=== PATIENT | male | born 1980 | race Asian ===

== ENCOUNTER 2020-06-17 13:18 | Emergency (ER) | payer OTHER, MEDICAID, SELFPAY ==
[2020-06-17 13:39] VITALS: BP 152/88; PULSE 82; RESP 18; TEMP 36.9; O2SAT 98; BMI 31.9
--- NOTE | 2020-06-17 13:47 | DI.RAD.S_ITS ---
PROCEDURE: XR ELBOW LT MIN 3V INDICATIONS: fall on snowboard TECHNIQUE: 3 views of the elbow were acquired. COMPARISON: [facility], CR, XR FOREARM LT 2V, 06/17/2020, 13:49. FINDINGS: Bones: There is a focal bone fragment seen adjacent to the coronoid process the proximal ulna. This fragment demonstrates apparent corticated margins, and this is felt most likely to be related to a remote injury. There is also a minimal lucency seen involving head. No suspicious lytic or blastic lesions are seen. Soft tissues: No elbow joint effusion. No suspicious soft tissue calcifications. IMPRESSION: Potential fractures are seen. However, there is no joint effusion, which argues against an acute fracture. If clinically appropriate, please consider a dedicated elbow CT for further evaluation. Dictated by: Yefri Villegas M.D. on 06/17/2020 at 13:04 Approved by: Yefri Villegas M.D. on 06/17/2020 at 13:08
--- NOTE | 2020-06-17 13:47 | DI.RAD.S_ITS ---
PROCEDURE: XR FOREARM RT 2V INDICATIONS: fall on snowboard TECHNIQUE: 2 views of the forearm were acquired. COMPARISON: [facility], CR, XR ELBOW LT MIN 3V, 06/17/2020, 13:49. FINDINGS: Bones: No acute fractures or dislocations. There is a remote appearing fracture fragment seen adjacent to the coronoid process of the olecranon. No suspicious bony lesions. Note is made of negative ulnar variance. This can predispose to development of AVN of the lunate. However, no findings of AVN of the lunate are seen on these plain films. Soft tissues: No suspicious soft tissue calcifications or masses. IMPRESSION: No definite, acute fracture can be seen. If there is point tenderness (or other clinical suspicion for a fracture not seen on these images) then a dedicated CT could be considered for further evaluation, if clinically appropriate. Dictated by: Yefri Villegas M.D. on 06/17/2020 at 13:08 Approved by: Yefri Villegas M.D. on 06/17/2020 at 13:09
--- NOTE | 2020-06-17 14:16 | ED_ITS ---
HPI - Extremity Injury (Upper) General Chief Complaint: Extremity Injury, Upper Stated Complaint: hurt left arm snowboarding Time Seen by Provider: 06/17/20 13:20 Source: patient Mode of arrival: Ambulatory Limitations: no limitations History of Present Illness HPI narrative: 39-year-old male nonsmoker with history of high blood pressure and gout presents with an injury to his left elbow suffered a few days ago while snowboarding. He crashed while riding in the half pipe and fell on arms that were reaching backwards to support his weight. He then tried skiing the following day and noticed that when trying to push with his pole he had significant pain in his elbow. He now admits to increasing pain with range of motion. He briefly had some tingling on his left thumb but denies any ongoing numbness, tingling or weakness. MD complaint: injury to: left Onset (ago): day(s) Other Extremity Injury: Left: elbow Other injuries: none Handedness: right Place: outdoors Severity: moderate Relieving factors: immobilization Exacerbating factors: movement of extremity Context: fall Associated symptoms: denies other symptoms Related Data Previous Rx's Medication Instructions Recorded losartan 50 mg PO QDAY #90 tab 04/28/17 colchicine 0 PO SEE INSTRUCTIONS #3 tab 08/25/17 Allergies Allergy/AdvReac Type Severity Reaction Status Date / Time No Known Drug Allergies Allergy Verified 06/17/20 13:45 Review of Systems Constitutional Constitutional: Denies chills, Denies fatigue, Denies fever(s), Denies frequent falls, Denies lethargy and Denies weakness Eyes Eyes: Denies change in vision, Denies eye discharge, Denies irritation and Denies loss of vision ENT Ears, Nose, Mouth, and Throat: Denies change in voice, Denies dizziness, Denies neck pain, Denies sore throat and Denies throat swelling Cardiovascular Cardiovascular: Denies chest pain, Denies irregular heart rhythm, Denies lightheadedness, Denies palpitations, Denies dyspnea, Denies dyspnea on exertion and Denies orthopnea Respiratory Respiratory: Denies cough, Denies dyspnea, Denies dyspnea on exertion and Denies wheezing Gastrointestinal Gastrointestinal: Denies abdominal pain, Denies change in bowel habits, Denies diarrhea, Denies nausea and Denies vomiting Musculoskeletal Musculoskeletal: Reports arthralgias, Reports joint swelling, Reports limited range of motion, Denies neck pain and Denies numbness Integumentary/Breasts Skin/Breast: Denies pruritus, Denies erythema, Denies rash and Denies wounds Neurologic Neurologic: Denies behavioral changes, Denies confusion, Denies dizziness, Denies frequent falls, Denies loss of vision, Denies numbness and Denies weakness Psychiatric Psychiatric: Denies anxiety, Denies behavioral changes, Denies confusion, Denies depression, Denies homicidal ideation and Denies suicidal ideation Endocrine Endocrine: Denies fatigue, Denies flushing and Denies palpitations Hematologic/Lymphatic Hematologic/Lymphatic: Denies easy bruising Allergic/Immunologic Allergic/Immunologic: Denies urticaria, Denies throat swelling and Denies wheezing Patient History Family History Father Age: 69 Diabetes mellitus Hypertension Mother Age: 64 Hypertension Social History Smoking Status: Never smoker Smoking Status: Never smoker alcohol intake frequency: 0-2 drinks per day Substance Use Type: does not use Exam Narrative Exam Narrative: GEN: AOx3 and in mild distress EYES: Pupils are equal, round, and reactive to light and accommodation. Extraoccular muscles are intact bilaterally. There is no subconjunctival hemorrhage or exudate. CHEST: Lungs are clear to auscultation bilaterally and free of wheezes, rales, or rhonchi. Heart rate is regular rhythm, there are no murmurs, clicks, rubs, or gallops. There is no chest wall tenderness. ABD: Abdomen is soft and nontender. There is no guarding or rebound. Bowel sounds are normal in all 4 quadrants. There is no mass or organomegaly. EXT: Decreased range of motion of left elbow secondary to pain, moderate effusion, bony tenderness throughout. Full pronation and supination, decreased flexion and extension at the elbow. No ongoing numbness, tingling or weakness SKIN: Warm, pink, and dry. No erythema or rash Initial Vital Signs Initial Vital Signs: Vital Signs Temperature 98.4 F 06/17/20 13:39 Pulse Rate 82 06/17/20 13:39 Respiratory Rate 18 06/17/20 13:39 Blood Pressure 152/88 H 06/17/20 13:39 Pulse Oximetry 98 06/17/20 13:39 Procedures Orthopedic Splinting/Casting Injury #1: Side: left Upper Extremity Injury Location: elbow Upper Extremity Immobilizer: sling/shoulder immobilizer Post splinting neuro exam: intact Post splinting vascular exam: intact Placed by: Nursing Course Course Course Narrative: reviewed CT with ortho. No posterior fat pad. Agrees with radiology, unlikely to be fracture. Orders Ordered: ED Orders 06/17/20 13:47 XR elbow LT min 3V Stat XR forearm LT 2V Stat 06/17/20 14:29 CT UE LT wo con Stat Vital Signs Vital signs: Vital Signs - 8 hr 06/17/20 13:39 06/17/20 16:37 Temperature 98.4 F Pulse Rate 82 74 Respiratory Rate 18 16 Blood Pressure 152/88 H 139/90 Pulse Oximetry 98 96 MDM - Extremity Injury (Upper) Imaging Data Extremity x-ray #1: Radiologist's Impression: 15 Ildefonso Walters, Find Patient Imaging - Gene Mederoszane Cleary 39 M 1980 ACTIVITY DATE EXAM STATUS AUTHOR 06/17/20 13:47 Signed Yefri Villegas 06/17/20 13:47 Signed BakariYefri [address] [id number] ReportSigned Patient: Derrick Mederos RMR#: [id number]: 1980Acct:[id number]/Sex: 39 / MDate of Service: 06/17/20Loc: EDAccession Number: [id number] Procedure: XR elbow LT min 3V Ordering Provider: Ildefonso Walters D.O. PROCEDURE: XR ELBOW LT MIN 3V INDICATIONS: fall on snowboard TECHNIQUE: 3 views of the elbow were acquired. COMPARISON: [facility], , XR FOREARM LT 2V, 06/17/2020, 13:49. FINDINGS: Bones: There is a focal bone fragment seen adjacent to the coronoid process the proximal ulna. This fragment demonstrates apparent corticated margins, and this is felt most likely to be related to a remote injury. There is also a minimal lucency seen involving head. No suspicious lytic or blastic lesions are seen. Soft tissues: No elbow joint effusion. No suspicious soft tissue calcifications. IMPRESSION: Potential fractures are seen. However, there is no joint effusion, which argues against an acute fracture. If clinically appropriate, please consider a dedicated elbow CT for further evaluation. Dictated by: Yefri Villegas M.D. on 06/17/2020 at 13:04 Approved by: Yefri Villegas M.D. on 06/17/2020 at 13:08 Extremity x-ray #2: Radiologist's Impression: Chart Viewer Diagnostics DATE TYPE STATUS REF RANGE/AUTHOR Hx Today 13:47 Yefri Villegas Today 13:47 Yefri Villegas Gene Mederosson R 39, M010/14/1980 REG ER, [facility] ED [facility] 172.72cm 95.254kg BMI: 31.9kg/m? Extremity Injury, Upper Search Chart No Data to Display ONSET 06/11/15 08/06/15 Today 13:39 Derrick Mederos 39 M [address] [id number] ReportSigned Patient: Derrick Mederos RMR#: [id number]: 1980Acct:[id number]/Sex: 39 / MDate of Service: 06/17/20Loc: EDAccession Number: [id number] Procedure: XR forearm LT 2V Ordering Provider: Ildefonso Walters D.O. PROCEDURE: XR FOREARM RT 2V INDICATIONS: fall on snowboard TECHNIQUE: 2 views of the forearm were acquired. COMPARISON: [facility], , XR ELBOW LT MIN 3V, 06/17/2020, 13:49. FINDINGS: Bones: No acute fractures or dislocations. There is a remote appearing fracture fragment seen adjacent to the coronoid process of the olecranon. No suspicious bony lesions. Note is made of negative ulnar variance. This can predispose to development of AVN of the lunate. However, no findings of AVN of the lunate are seen on these plain films. Soft tissues: No suspicious soft tissue calcifications or masses. IMPRESSION: No definite, acute fracture can be seen. If there is point tenderness (or other clinical suspicion for a fracture not seen on these images) then a dedicated CT could be considered for further evaluation, if clinically appropriate. Dictated by: Yefri Villegas M.D. on 06/17/2020 at 13:08 Approved by: Yefri Villegas M.D. on 06/17/2020 at 13:09 Discharge Plan Departure Patient Disposition: Home Clinical Impression: Elbow sprain Qualifiers: Encounter type: initial encounter Laterality: left Qualified Code(s): S53.402A - Unspecified sprain of left elbow, initial encounter Instructions: DI for Elbow Sprain Activity Restrictions/Additional Instructions: *You have been diagnosed with [elbow pain, no evidence of fracture on x-ray or CT scan] *What to do: *Take medications as directed: Tylenol or Motrin for pain *Follow up with your primary care provider in 2-3 days, call for an appointment. Let them know you were seen in the Emergency Department and that we ask that you be seen in follow up *Return to ER if you should have any new, worsening or concerning symptoms Prescriptions: No Action losartan 50 MG tablet 50 mg PO QDAY Qty: 90 RF: 3 colchicine 0.6 MG tablet 0 PO SEE INSTRUCTIONS Qty: 3 RF: 2 Referrals: Dede Talavera ARNP [Primary Care Provider] -
--- NOTE | 2020-06-17 14:29 | DI.CT.S_ITS ---
PROCEDURE: CT UE LT WO CON INDICATIONS: fall snowboarding, pain, swelling, abnormal xray TECHNIQUE: Noncontrast 1-1.5 mm axial sections were acquired through the elbow joint, with coronal and sagittal reformats. COMPARISON: [facility], CR, XR ELBOW LT MIN 3V, 06/17/2020, 13:49. FINDINGS: Image quality: Excellent. Bones: There are prominent osteophytes arising from the coracoid process and the olecranon of the proximal ulna. Small ossicle adjacent to the coracoid process are most likely intra-articular bodies rather than acute fractures although fracture of an osteophyte is a diagnostic possibility. The elbow joint is anatomically aligned. No dislocation. Soft tissues: No soft tissue hematoma. No joint effusion. IMPRESSION: Prominent osteophytes are present arising from the coracoid process and the olecranon of the proximal ulna. Small ossicle are seen adjacent to the coracoid process, which are felt most likely intra-articular bodies rather than acute fractures of although it may be definitive to rule out a fracture of an osteophyte. No joint effusion or soft tissue hematoma. No elbow dislocation or subluxation. If clinical symptoms persist or clinical suspicion for internal derangement is high, follow-up MRI is suggested. Dictated by: Tristan Mckeon M.D. on 06/17/2020 at 15:59 Approved by: Tristan Mckeon M.D. on 06/17/2020 at 16:07
[2020-06-17 16:37] VITALS: BP 139/90; PULSE 74; RESP 16; O2SAT 96
== END 2020-06-17 16:39 | disposition home or self-care (01) ==
PROVIDERS: Emergency Provider Emergency Medicine; Family Provider Internal Medicine; PCP Internal Medicine
DX: S53.402A Unspecified sprain of left elbow, initial encounter (principal); V00.311A Fall from snowboard, initial encounter
CPT/HCPCS: 73080; 73090; 73200; 99281; 99284

== ENCOUNTER → 2022-01-05 15:27 | Outpatient (CLI) | payer BC, OTHER, MEDICAID, SELFPAY ==
[2022-01-05 15:49] LABS: COVID19 -Nasal RAPID Negative (Negative)
== END ==
PROVIDERS: Family Provider Internal Medicine; PCP Internal Medicine; Visit Provider Physician Assistant
DX: Z20.822 Contact with and (suspected) exposure to COVID-19 (principal)
CPT/HCPCS: 87635

== ENCOUNTER → 2023-07-28 10:28 | Outpatient (CLI) | payer OTHER, MEDICAID, SELFPAY ==
--- NOTE | 2023-07-28 10:33 | DI.RAD.S_ITS ---
PROCEDURE: XR FOOT LT MIN 3V INDICATIONS: GOUT IN LEFT FOOT TECHNIQUE: 3 views of the foot were acquired. COMPARISON: CT, CT UE LT WO CON, 06/17/2020, 14:46. [facility], CR, FOOT 3V RIGHT, 12/10/2015, 15:58. FINDINGS: Bones: No fractures or dislocations. No suspicious bony lesions. Mild osteoarthritic changes in ankle and foot. There is periarticular bony erosion at the 2nd metatarsal head and the base of the 2nd proximal phalanx. Soft tissues: No tibiotalar joint effusion. Achilles tendon appears normal. IMPRESSION: 1. No acute bony abnormality. 2. Mild osteoarthritic changes. 3. There is periarticular bony erosion at the 2nd metatarsophalangeal joint, in keeping with gouty arthritis. Dictated by: Tristan Mckeon M.D. on 07/28/2023 at 13:50 Approved by: Tristan Mckeon M.D. on 07/28/2023 at 13:55
== END ==
PROVIDERS: Family Provider Internal Medicine; PCP Internal Medicine; Referring Provider Internal Medicine; Visit Provider Internal Medicine
DX: M1A.0720 Idiopathic chronic gout, left ankle and foot, without tophus (tophi) (principal)
CPT/HCPCS: 73630

== ENCOUNTER → 2024-03-16 19:00 | Outpatient (CLI) | payer OTHER, MEDICAID, SELFPAY | PROVIDERS: Family Provider Internal Medicine; PCP Internal Medicine; Referring Provider Internal Medicine; Visit Provider Internal Medicine | DX: Z23 Encounter for immunization (principal) | CPT/HCPCS: 90471; 90656 ==

== ENCOUNTER → 2024-04-04 16:27 | Outpatient (CLI) | payer OTHER, MEDICAID, SELFPAY ==
--- NOTE | 2024-04-04 16:29 | DI.RAD.S_ITS ---
PROCEDURE: XR KNEE RT 1TO2V INDICATIONS: KNEE PAIN TECHNIQUE: 2 views of the knee were acquired. COMPARISON: None. FINDINGS: Bones: No fractures or dislocations. No suspicious bony lesions. Tricompartmental joint space narrowing with associated osteophytosis. Soft tissues: Small joint effusion. No suspicious soft tissue calcifications. IMPRESSION: [id number] tricompartmental osteoarthritis. Kellgren-Manny Grade 2. Dictated by: Emiliano Alas M.D. on 04/04/2024 at 21:55 Approved by: Emiliano Alas M.D. on 04/04/2024 at 21:56
--- NOTE | 2024-04-04 16:29 | DI.RAD.S_ITS ---
PROCEDURE: XR KNEE LT 1TO2V INDICATIONS: KNEE PAIN TECHNIQUE: 2 views of the knee were acquired. COMPARISON: None. FINDINGS: Bones: No fractures or dislocations. No suspicious bony lesions. Tricompartmental joint space narrowing with associated osteophytosis. Soft tissues: No joint effusion. No suspicious soft tissue calcifications. IMPRESSION: [id number] tricompartmental osteoarthritis. Kellgren-Manny Grade 2. Dictated by: Emiliano Alas M.D. on 04/04/2024 at 21:55 Approved by: Emiliano Alas M.D. on 04/04/2024 at 21:55
== END ==
PROVIDERS: Family Provider Internal Medicine; PCP Internal Medicine; Referring Provider Internal Medicine; Visit Provider Internal Medicine
DX: M17.0 Bilateral primary osteoarthritis of knee (principal); M25.561 Pain in right knee; M25.562 Pain in left knee
CPT/HCPCS: 73560

== ENCOUNTER 2024-08-08 07:30 | Outpatient (RCR) | payer OTHER, SELFPAY ==
--- NOTE | 2024-05-23 15:42 | PT.OIE ---
Current Diagnoses Chronic gout, unspecified, with tophus (tophi) (05/23/24) Pain in unspecified joint (05/23/24) Pain in right knee (05/23/24) Pain in left knee (05/23/24) Stiffness of right knee, not elsewhere classified (05/23/24) Stiffness of left knee, not elsewhere classified (05/23/24) Stiffness of unspecified ankle, not elsewhere classified (05/23/24) Other lack of coordination (05/23/24) Weakness (05/23/24) Visit Care Team Role Provider Type JAMES Nunes Attending Provider Advanced Log Marker Family Provider Primary Care Provider Referring Provider Specialty: Family Practice Address: [address] [place] [address], [facility] Email: [email or web address] Physical Therapy Initial Evaluation PT-OP-A Visit Information Start: 05/23/24 07:28 Freq: Status: Active Protocol: Document 05/23/24 07:28 NM (Rec: 05/23/24 08:16 NM [id number]) Out-Patient Physical Therapy Visit Information Visit Information Visit Type Initial Evaluation Visit Note 24 visits Visit Start Time 07:31 Visit Stop Time 08:15 Visit Number 07/08 Evaluation Information Evaluation Date 05/23/24 Precautions Precautions Hx gout, fall risk PT-OP-B Current Condition Start: 05/23/24 07:28 Freq: Status: Active Protocol: Document 05/23/24 07:28 NM (Rec: 05/23/24 08:16 NM [id number]) Current Condition History of Current Condition Onset Date early 2023 History of Current Condition Pt presents with B knee pain, usually with activity. Worse with downhill walking, down stairs, skiing, lunges. He reports that he has had to modify playing tennis, has difficulty with stopping quickly and changing direction , in addition to serving. He reports pain began in early 2023. He had a big gout flare up at same time. Had imaging, reflects more OA. Left knee usually bothers him more than the R knee but varies day by day. Has not been referred to fireworks display specialist for knees but only for gout in February. Has had gout for a few years, has flare ups every 3 months; unsure of cause of flare ups. When he has flare ups, usually at ankles, 2nd toes. He is on medication to manage but is prn, usually on ibuprofen and tylenol. He has not seen rheumatology. No falls, fear of falls especially with going down stairs- feels unstable due to pain. 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 use rail Functional Limitations- Recreation/ rides bikes, goes for walks- Hobbies several times ea week tennis 1/wk PT-OP-C Subjective Start: 05/23/24 07:28 Freq: Status: Active Protocol: Document 05/23/24 07:28 NM (Rec: 05/23/24 08:16 NM [id number]) OP-PT Subjective Patient Comments Patient Comments Pt consents to participate in PT evaluation Patient Questionnaires Lower Extremity Functional Scale LEFS Score 64/80 OP-PT Pain Assessment Location B knee Pain Location Details underneath patellar (L>R), M/L joint lines Intensity 5 Scale Used Numeric (0 - 10) Description Aching,Dull,Sharp Description- Other L-8/10, R 6/10 Frequency Frequent Pain Duration seconds Pain Aggravating Factors Activity,Exercise,Stair Climbing Pain Alleviating Factors Medication,Rest PT-OP-D Balance Start: 05/23/24 16:29 Freq: Status: Active Protocol: Document 05/23/24 07:28 NM (Rec: 05/23/24 16:31 NM [id number]) Balance Tests Single Limb Standing Single Limb- Right 15 sec- inc unsteadiness Single Limb- Left 10 sec - inc unsteadiness PT-OP-E Functional Tests Start: 05/23/24 07:28 Freq: Status: Active Protocol: Document 05/23/24 07:28 NM (Rec: 05/23/24 15:45 NM [id number]) Functional Tests Squat Test Score 5 Comments no pain; feels behind patella, dec ankle/hip mob PT-OP-F Manual Assessment Start: 05/23/24 07:28 Freq: Status: Active Protocol: Document 05/23/24 07:28 NM (Rec: 12/09/24 08:16 NM [id number]) Manual Assessments Soft Tissue Assessment Soft Tissue Mobility Assessment R knee possible johnson cyst - palpable bulge Joint Mobility Assessment Joint Mobility Assessment Increased lateral tracking R knee, decreased R knee ext ROM , limited joint play; no pain L knee has increased passive extension and flexion compared to RLE; limited patellar mobility PT-OP-G Mobility & Gait Start: 05/23/24 07:28 Freq: Status: Active Protocol: Document 05/23/24 07:28 NM (Rec: 05/23/24 08:16 NM [id number]) OP Gait Assessment Comments Gait Comments L supination Stair Climbing Evaluation Devices Stair Climbing Assistive Devices Right Railing Technique/Endurance Stair Climbing Direction Ascend and Descend Stair Climbing Technique Step Over Step Number of Steps Climbed 4 Stair Climbing Set # Repetitions (reps) 1 Comments Stair Climbing Comments Pain with descent, demos unsteadiness and knee valgus with descent especially with single leg stability B 4 step down: still demo unsteadiness, increased valgus , poor ankle dorsiflexion and stability on single leg PT-OP-J Posture/Palpation/Skin Start: 05/23/24 07:28 Freq: Status: Active Protocol: Document 05/23/24 07:28 NM (Rec: 05/23/24 15:45 NM [id number]) Posture Evaluation Position Standing Head/C-Spine Posture Forward Head Pelvis Posture Anteriorly Tilted Hip Posture (L) Externally Rotated,(R) Externally Rotated Knee Posture (L) Genu Valgus,(R) Genu Valgus Patellar Posture (L) Superior,(R) Superior,(R) Laterally Tilted Ankle/Foot Posture (L) Pronated,(R) Pronated Foot Arch (L) Low Arch,(R) Low Arch Palpation Assessment Location R knee Palpation Details Tenderness along medial knee No tenderness with patellar mobilizations Palpable bulge behind lateral knee, mild tenderness L knee Palpation Details Tenderness along fibular head to lateral joint line No tenderness along medial joint line or with patellar mobilizations PT-OP-K Range of Motion Start: 05/23/24 07:28 Freq: Status: Active Protocol: Document 05/23/24 07:28 NM (Rec: 05/23/24 08:16 NM [id number]) Hip Goniometric Range of Motion Hip Right Internal Rotation 20 External Rotation 25 Left Internal Rotation 28 External Rotation 30 Knee Goniometric Range of Motion Knee Right Flexion Active (degrees) 125 Extension Active (degrees) 7 Comments minimal passive ext and flex; no pain with overpressure but stiff Left Flexion Active (degrees) 126 Extension Active (degrees) 1 Comments more passive ext and flex; no pain with overpressure Ankle and Foot Goniometric Range of Motion Ankle and Foot Right Dorsiflexion with Knee Flexed 4 Plantarflexion 45 Inversion 25 Eversion 6 Left Dorsiflexion with Knee Flexed 3 Plantarflexion 40 Inversion 20 Eversion 8 PT-OP-L Special Tests Start: 05/23/24 07:28 Freq: Status: Active Protocol: Document 05/23/24 07:28 NM (Rec: 05/23/24 08:16 NM [id number]) Special Tests Knee Special Tests Patellar Grind Test Test Results - Hemant Test Test Results - Libby's Test Results - Varus Test Results - Valgus Test Results + Comments Mild increase in LLE compared to RLE with flexion PT-OP-M Strength Start: 05/23/24 07:28 Freq: Status: Active Protocol: Document 05/23/24 07:28 NM (Rec: 05/23/24 08:16 NM [id number]) Hip Strength Hip Manual Muscle Testing Right Flexion (L2) 4 Good Extension (S1) 4- Good- Abduction 4- Good- Adduction 4 Good External Rotation 4 Good Internal Rotation 4 Good Left Flexion (L2) 4+ Good+ Extension (S1) 4- Good- Abduction 4- Good- External Rotation 4 Good Internal Rotation 4 Good Knee Strength Knee Manual Muscle Testing Right Flexion (S2) 4 Good Extension (L3) 4- Good- Left Flexion (S2) 4 Good Extension (L3) 4- Good- Ankle/Foot Strength Ankle and Foot Manual Muscle Testing Right Dorsiflexion (L4) 4 Good Plantarflexion (S1) 4 Good Inversion 4 Good Eversion (S1) 4 Good Left Dorsiflexion (L4) 4 Good Plantarflexion (S1) 4 Good Inversion 4 Good Eversion (S1) 4 Good PT-OP-Q Treatments Start: 05/23/24 07:28 Freq: Status: Active Protocol: Document 05/23/24 07:28 NM (Rec: 05/23/24 15:45 NM [id number]) Therapeutic Exercises Supine Exercises bridge Supine Exercise Name HEP Side bilateral Equipment Used with ppt Reps/Minutes 2x10 Comments cued form Sidelying Exercises hip abduction Sidelying Exercise Name HEP Side bilateral Reps/Minutes 2x10 Comments cueing for form PT-OP-T Assessment and Plan Start: 05/23/24 07:28 Freq: Status: Active Protocol: Document 05/23/24 07:28 NM (Rec: 05/23/24 08:16 NM [id number]) Physical Therapy Assessment Rehab Potential Rehabilitation Potential Good Evaluation Complexity Number of Personal Factors/Comorbidities 3 or More Number of Body Systems Impaired 3 Clinical Presentation at Evaluation Stable Impairments Impairments Activity Tolerance,Balance, Edema,Functional Activities, Functional Mobility,Gait, Integument,Pain,Posture,ROM, Soft Tissue Mobility,Strength, Transfers Other Concerns Age Related Concerns PMH: back pain, blood pressure (high), gout Medications: amlodipine, allopurinol, losartan, fenofibrate, ketoconazole Barriers to Rehabilitation Pt has flare ups in gout every 3 months, currently unable to identify trigger. Has seen orthopedist when not in flare up, sent to trial PT. Has not been referred to rheumatology yet. Pt has job with repetitive stairs and reports of several near falls with stairs. Goals Four Impairment LEFS 64/80 Party Plan Sales Unit Advisor Goal (LTG) Pt will improve LEFS >64/80 in order to demonstrate improvements in symptom management during ADLs, work, and recreational activities LTG Duration 12 weeks Three Impairment unsteadiness w/ stairs, fear of falling Short Term Goal (STG) Pt will be able to perform at least 8 eccentric step downs without <5/10 knee pain in order to demonstrate improved control during stair management STG Duration 8 weeks Alf Goal (LTG) Pt will be able to perform at least 12 stairs with <4/10 knee pain with 1 rail or less and no reports of instability during descent for work- related tasks LTG Duration 12 weeks Two Impairment B knee and hip strength limited Short Term Goal (STG) Pt will be IND with HEP at least 3x/wk in order to maximize progression with PT STG Duration 4 weeks Alf Goal (LTG) Pt will improve B hip and knee strength globally to 4+/5 MMT in order to demonstrate improved stability for squats, tennis, and stairs LTG Duration 12 weeks One Impairment R knee ROM limited Short Term Goal (STG) Pt will improve R knee extension AROM to lacking 3 deg or less to improve TKE for more efficient quad activation during stairs STG Duration 8 weeks Alf Goal (LTG) Pt will improve B knee extension AROM to at least 1 deg or better in order to improve TKE for more efficient quad activation during stairs LTG Duration 12 weeks Assessment Summary Assessment Pt is a 43 y.o. presenting with B knee pain beginning in 2023, worsening especially since following several gout flare ups over the past year. L knee pain is worse than R knee pain. Symptoms are consistent with degenerative changes. Pt demonstrates limitations in B knee ROM, especially R knee extension. Pt has limitations in R hip mobility and B ankle mobility, which likely also impacts knee ROM/strength. Pt also has limitations in hip, knee, and ankle strength especially hip abduction and extension. Palpable muscle restrictions and swelling behind R knee. Pain is reproduced with stairs and knee extension. Demos unsteadiness with descending stairs, in addition to significant knee valgus and ankle instability. PT educated pt on exam findings and plan of care. Pt would benefit from skilled PT for progressive ROM and strengthening in order to improve symptom management during ADLs, work-related activities, and recreational activities. Physical Therapy Plan Frequency and Duration Frequency of Treatment 2x/Week Duration of treatment (weeks) 12 Plan of Care Start Date 05/23/24 Plan of Care End Date 08/19/24 Therapeutic Interventions Therapeutic Interventions Balance Training,Gait Training ,Home Exercise Program,Joint Mobilizations,Manual Therapy, Neuromuscular Re-education, Orthotic/Prosthetic Management ,Patient/Caregiver Education, Self-Care/Home Management, Sensory Integration,Soft Tissue Mobilization,Taping, Therapeutic Activities, Therapeutic Exercises Modalities Cold Pack/Ice Massage,Electric Stimulation,Hot Packs, Ultrasound Other Therapeutic Interventions pelvic realignment, MET Other Referrals/Consults Referrals/Consults Recommended Recommend referral to rheumatology for symptom management as well Next Visit Focus/Plan Next Note Type Treatment Note Next Visit Plan single leg bridge, HS stretch, sidelying hip abduction, quad set, TKE, ankle dorsiflexion mobilization. quad and glute strength manual treatment: STM, joint mobilizations
--- NOTE | 2024-05-26 10:47 | PT.OTN ---
Current Diagnoses Chronic gout, unspecified, with tophus (tophi) (05/26/24) Pain in unspecified joint (05/26/24) Pain in right knee (05/26/24) Pain in left knee (05/26/24) Stiffness of right knee, not elsewhere classified (05/26/24) Stiffness of left knee, not elsewhere classified (05/26/24) Stiffness of unspecified ankle, not elsewhere classified (05/26/24) Other lack of coordination (05/26/24) Weakness (05/26/24) Physical Therapy Treatment Note PT-OP-A Visit Information Start: 05/23/24 07:28 Freq: Status: Active Protocol: Document 05/26/24 07:30 NM (Rec: 05/26/24 08:16 NM [id number]) Out-Patient Physical Therapy Visit Information Visit Information Visit Type Treatment Note Visit Note 24 visits Visit Start Time 07:32 Visit Stop Time 08:15 Visit Number 08/08 Evaluation Information Evaluation Date 05/23/24 Precautions Precautions Hx gout, fall risk PT-OP-B Current Condition Start: 05/23/24 07:28 Freq: Status: Active Protocol: Document 05/23/24 07:28 NM (Rec: 05/23/24 08:16 NM [id number]) Current Condition History of Current Condition Onset Date early 2023 History of Current Condition Pt presents with B knee pain, usually with activity. Worse with downhill walking, down stairs, skiing, lunges. He reports that he has had to modify playing tennis, has difficulty with stopping quickly and changing direction , in addition to serving. He reports pain began in early 2023. He had a big gout flare up at same time. Had imaging, reflects more OA. Left knee usually bothers him more than the R knee but varies day by day. Has not been referred to orthopedic surgeon for knees but only for gout in February. Has had gout for a few years, has flare ups every 3 months; unsure of cause of flare ups. When he has flare ups, usually at ankles, 2nd toes. He is on medication to manage but is prn, usually on ibuprofen and tylenol. He has not seen rheumatology. No falls, fear of falls especially with going down stairs- feels unstable due to pain. 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 He reports R knee , none L knee. During safety walks at work, walking was provocative yesterday. PT-OP-D Balance Start: 05/23/24 16:29 Freq: Status: Active Protocol: Document 05/23/24 07:28 NM (Rec: 05/23/24 16:31 NM [id number]) Balance Tests Single Limb Standing Single Limb- Right 15 sec- inc unsteadiness Single Limb- Left 10 sec - inc unsteadiness PT-OP-E Functional Tests Start: 05/23/24 07:28 Freq: Status: Active Protocol: Document 05/23/24 07:28 NM (Rec: 05/23/24 15:45 NM [id number]) Functional Tests Squat Test Score 5 Comments no pain; feels behind patella, dec ankle/hip mob PT-OP-F Manual Assessment Start: 05/23/24 07:28 Freq: Status: Active Protocol: Document 05/23/24 07:28 NM (Rec: 05/23/24 08:16 NM [id number]) Manual Assessments Soft Tissue Assessment Soft Tissue Mobility Assessment R knee possible johnson cyst - palpable bulge Joint Mobility Assessment Joint Mobility Assessment Increased lateral tracking R knee, decreased R knee ext ROM , limited joint play; no pain L knee has increased passive extension and flexion compared to RLE; limited patellar mobility PT-OP-G Mobility & Gait Start: 05/23/24 07:28 Freq: Status: Active Protocol: Document 05/23/24 07:28 NM (Rec: 05/23/24 08:16 NM [id number]) OP Gait Assessment Comments Gait Comments L supination Stair Climbing Evaluation Devices Stair Climbing Assistive Devices Right Railing Technique/Endurance Stair Climbing Direction Ascend and Descend Stair Climbing Technique Step Over Step Number of Steps Climbed 4 Stair Climbing Set # Repetitions (reps) 1 Comments Stair Climbing Comments Pain with descent, demos unsteadiness and knee valgus with descent especially with single leg stability B 4 step down: still demo unsteadiness, increased valgus , poor ankle dorsiflexion and stability on single leg PT-OP-J Posture/Palpation/Skin Start: 05/23/24 07:28 Freq: Status: Active Protocol: Document 05/23/24 07:28 NM (Rec: 05/23/24 15:45 NM [id number]) Posture Evaluation Position Standing Head/C-Spine Posture Forward Head Pelvis Posture Anteriorly Tilted Hip Posture (L) Externally Rotated,(R) Externally Rotated Knee Posture (L) Genu Valgus,(R) Genu Valgus Patellar Posture (L) Superior,(R) Superior,(R) Laterally Tilted Ankle/Foot Posture (L) Pronated,(R) Pronated Foot Arch (L) Low Arch,(R) Low Arch Palpation Assessment Location R knee Palpation Details Tenderness along medial knee No tenderness with patellar mobilizations Palpable bulge behind lateral knee, mild tenderness L knee Palpation Details Tenderness along fibular head to lateral joint line No tenderness along medial joint line or with patellar mobilizations PT-OP-K Range of Motion Start: 05/23/24 07:28 Freq: Status: Active Protocol: Document 05/23/24 07:28 NM (Rec: 05/23/24 08:16 NM [id number]) Hip Goniometric Range of Motion Hip Right Internal Rotation 20 External Rotation 25 Left Internal Rotation 28 External Rotation 30 Knee Goniometric Range of Motion Knee Right Flexion Active (degrees) 125 Extension Active (degrees) 7 Comments minimal passive ext and flex; no pain with overpressure but stiff Left Flexion Active (degrees) 126 Extension Active (degrees) 1 Comments more passive ext and flex; no pain with overpressure Ankle and Foot Goniometric Range of Motion Ankle and Foot Right Dorsiflexion with Knee Flexed 4 Plantarflexion 45 Inversion 25 Eversion 6 Left Dorsiflexion with Knee Flexed 3 Plantarflexion 40 Inversion 20 Eversion 8 PT-OP-L Special Tests Start: 05/23/24 07:28 Freq: Status: Active Protocol: Document 05/23/24 07:28 NM (Rec: 05/23/24 08:16 NM [id number]) Special Tests Knee Special Tests Patellar Grind Test Test Results - Hemant Test Test Results - Libby's Test Results - Varus Test Results - Valgus Test Results + Comments Mild increase in LLE compared to RLE with flexion PT-OP-M Strength Start: 05/23/24 07:28 Freq: Status: Active Protocol: Document 05/23/24 07:28 NM (Rec: 05/23/24 08:16 NM [id number]) Hip Strength Hip Manual Muscle Testing Right Flexion (L2) 4 Good Extension (S1) 4- Good- Abduction 4- Good- Adduction 4 Good External Rotation 4 Good Internal Rotation 4 Good Left Flexion (L2) 4+ Good+ Extension (S1) 4- Good- Abduction 4- Good- External Rotation 4 Good Internal Rotation 4 Good Knee Strength Knee Manual Muscle Testing Right Flexion (S2) 4 Good Extension (L3) 4- Good- Left Flexion (S2) 4 Good Extension (L3) 4- Good- Ankle/Foot Strength Ankle and Foot Manual Muscle Testing Right Dorsiflexion (L4) 4 Good Plantarflexion (S1) 4 Good Inversion 4 Good Eversion (S1) 4 Good Left Dorsiflexion (L4) 4 Good Plantarflexion (S1) 4 Good Inversion 4 Good Eversion (S1) 4 Good PT-OP-Q Treatments Start: 05/23/24 07:28 Freq: Status: Active Protocol: Document 05/26/24 07:30 NM (Rec: 05/26/24 08:16 NM [id number]) Therapeutic Exercises Supine Exercises SLR Supine Exercise Name HEP Side bilateral Reps/Minutes 10 ea Comments cued quad set throughout ROM bridge Supine Exercise Name HEP review Side bilateral Resistance level 3 band at thighs Equipment Used with ppt Reps/Minutes 2x10 Comments cued for less knee flex for comfort Sitting Exercises Hamstring stretch Sitting Exercise Name with AP self mob- HEP Side bilateral Equipment Used gait belt on foot Reps/Minutes 60 Comments cued for less intense mob for comfort quad set Side bilateral Equipment Used towel roll under knee Reps/Minutes 2x10 w/ 2 ea Comments pain free; good activation Standing Exercises TKE Side bilateral Resistance level 3 band Equipment Used hand support for balance Reps/Minutes 15 Comments cued for no body translation; popping in R knee, nonpainful Manual Therapy Treatment Consent Patient gave verbal consent for manual Yes treatment Soft Tissue Mobilization R knee Body Location calf, HS, quad, TFL, peripatellar, ITB Mobilization Type Rolling,Strumming,Sustained Pressure Intensity/Depth Moderate Body Position Supine Comments Monitored for pain. Mild swelling behind lateral knee near distal HS. ITB most limited L knee Body Location calf, HS, quad, TFL, peripatellar Mobilization Type Rolling,Strumming,Sustained Pressure Intensity/Depth Moderate Body Position Supine Comments Monitored for pain. Tightness at hamstrings Joint Mobilizations R knee Joint patellar; tibiofemoral Direction sup/inf/med/lat; PA/AP Grade II Body Position Supine Reps/Duration 2x10 ea Comments Monitored for pain. Limited mobility into ext L knee Joint patellar; proximal tibiofibular Direction sup/inf/med/lat; PA/AP Grade II Body Position Supine Reps/Duration 2x10 ea Comments Monitored for pain PT-OP-T Assessment and Plan Start: 05/23/24 07:28 Freq: Status: Active Protocol: Document 05/26/24 07:30 NM (Rec: 05/26/24 08:16 NM [id number]) Physical Therapy Assessment Rehab Potential Rehabilitation Potential Good Evaluation Complexity Number of Personal Factors/Comorbidities 3 or More Number of Body Systems Impaired 3 Clinical Presentation at Evaluation Stable Impairments Impairments Activity Tolerance,Balance, Edema,Functional Activities, Functional Mobility,Gait, Integument,Pain,Posture,ROM, Soft Tissue Mobility,Strength, Transfers Other Concerns Age Related Concerns PMH: back pain, blood pressure (high), gout Medications: amlodipine, allopurinol, losartan, fenofibrate, ketoconazole Barriers to Rehabilitation Pt has flare ups in gout every 3 months, currently unable to identify trigger. Has seen orthopedist when not in flare up, sent to trial PT. Has not been referred to rheumatology yet. Pt has job with repetitive stairs and reports of several near falls with stairs. Goals Four Impairment LEFS 64/80 Fdc Goal (LTG) Pt will improve LEFS >64/80 in order to demonstrate improvements in symptom management during ADLs, work, and recreational activities LTG Duration 12 weeks Three Impairment unsteadiness w/ stairs, fear of falling Short Term Goal (STG) Pt will be able to perform at least 8 eccentric step downs without <5/10 knee pain in order to demonstrate improved control during stair management STG Duration 8 weeks Fdc Goal (LTG) Pt will be able to perform at least 12 stairs with <4/10 knee pain with 1 rail or less and no reports of instability during descent for work- related tasks LTG Duration 12 weeks Two Impairment B knee and hip strength limited Short Term Goal (STG) Pt will be IND with HEP at least 3x/wk in order to maximize progression with PT STG Duration 4 weeks [employer] Goal (LTG) Pt will improve B hip and knee strength globally to 4+/5 MMT in order to demonstrate improved stability for squats, tennis, and stairs LTG Duration 12 weeks One Impairment R knee ROM limited Short Term Goal (STG) Pt will improve R knee extension AROM to lacking 3 deg or less to improve TKE for more efficient quad activation during stairs STG Duration 8 weeks [employer] Goal (LTG) Pt will improve B knee extension AROM to at least 1 deg or better in order to improve TKE for more efficient quad activation during stairs LTG Duration 12 weeks Assessment Summary Assessment Pt tolerated session well, reports no knee pain at end of session. R knee ext improved from lacking 4 deg to lacking 2 deg post manual and exercise . Reports mild pain behind knee with AP self mob and pain with bridges, eliminated with cueing to adjust position or intensity for comfort. Initiated quad strengthening to promote more efficient extension. TKE with band most challenging; does have non- painful clicking in R knee, likely related to lack of extension ROM. Pt would continue to benefit from skilled PT for progressive strengthening and flexibility to improve symptom management. Physical Therapy Plan Frequency and Duration Frequency of Treatment 2x/Week Duration of treatment (weeks) 12 Plan of Care Start Date 05/23/24 Plan of Care End Date 08/19/24 Therapeutic Interventions Therapeutic Interventions Balance Training,Gait Training ,Home Exercise Program,Joint Mobilizations,Manual Therapy, Neuromuscular Re-education, Orthotic/Prosthetic Management ,Patient/Caregiver Education, Self-Care/Home Management, Sensory Integration,Soft Tissue Mobilization,Taping, Therapeutic Activities, Therapeutic Exercises Modalities Cold Pack/Ice Massage,Electric Stimulation,Hot Packs, Ultrasound Other Therapeutic Interventions pelvic realignment, MET Other Referrals/Consults Referrals/Consults Recommended Recommend referral to rheumatology for symptom management as well Next Visit Focus/Plan Next Note Type Treatment Note Next Visit Plan progress to single leg bridge (future), HS stretch, sidelying hip abduction vs lateral stepping, quad set, TKE w/ ball > progress to TKE w/ band, trial ankle dorsiflexion mobilization, calf stretch. Plan of care: quad and glute strength manual treatment: STM, joint mobilizations Balance training
--- NOTE | 2024-05-30 08:17 | PT.OTN ---
Current Diagnoses Chronic gout, unspecified, with tophus (tophi) (05/30/24) Pain in unspecified joint (05/30/24) Pain in right knee (05/30/24) Pain in left knee (05/30/24) Stiffness of right knee, not elsewhere classified (05/30/24) Stiffness of left knee, not elsewhere classified (05/30/24) Stiffness of unspecified ankle, not elsewhere classified (05/30/24) Other lack of coordination (05/30/24) Weakness (05/30/24) Physical Therapy Treatment Note PT-OP-A Visit Information Start: 05/23/24 07:28 Freq: Status: Active Protocol: Document 05/30/24 07:29 NM (Rec: 05/30/24 08:17 NM [id number]) Out-Patient Physical Therapy Visit Information Visit Information Visit Type Treatment Note Visit Note 24 visits Visit Start Time 07:33 Visit Stop Time 08:15 Visit Number 09/05 Evaluation Information Evaluation Date 05/23/24 Precautions Precautions Hx gout, fall risk PT-OP-B Current Condition Start: 05/23/24 07:28 Freq: Status: Active Protocol: Document 05/23/24 07:28 NM (Rec: 05/23/24 08:16 NM [id number]) Current Condition History of Current Condition Onset Date early 2023 History of Current Condition Pt presents with B knee pain, usually with activity. Worse with downhill walking, down stairs, skiing, lunges. He reports that he has had to modify playing tennis, has difficulty with stopping quickly and changing direction , in addition to serving. He reports pain began in early 2023. He had a big gout flare up at same time. Had imaging, reflects more OA. Left knee usually bothers him more than the R knee but varies day by day. 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 Has had gout for a few years, has flare ups every 3 months; unsure of cause of flare ups. When he has flare ups, usually at ankles, 2nd toes. He is on medication to manage but is prn, usually on ibuprofen and tylenol. He has not seen rheumatology. No falls, fear of falls especially with going down stairs- feels unstable due to pain. 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 R knee still popping, does not hurt. Pt reports that he bridges are better. PT-OP-D Balance Start: 05/23/24 16:29 Freq: Status: Active Protocol: Document 05/23/24 07:28 NM (Rec: 05/23/24 16:31 NM [id number]) Balance Tests Single Limb Standing Single Limb- Right 15 sec- inc unsteadiness Single Limb- Left 10 sec - inc unsteadiness PT-OP-E Functional Tests Start: 05/23/24 07:28 Freq: Status: Active Protocol: Document 05/23/24 07:28 NM (Rec: 05/23/24 15:45 NM [id number]) Functional Tests Squat Test Score 5 Comments no pain; feels behind patella, dec ankle/hip mob PT-OP-F Manual Assessment Start: 05/23/24 07:28 Freq: Status: Active Protocol: Document 05/23/24 07:28 NM (Rec: 05/23/24 08:16 NM [id number]) Manual Assessments Soft Tissue Assessment Soft Tissue Mobility Assessment R knee possible johnson cyst - palpable bulge Joint Mobility Assessment Joint Mobility Assessment Increased lateral tracking R knee, decreased R knee ext ROM , limited joint play; no pain L knee has increased passive extension and flexion compared to RLE; limited patellar mobility PT-OP-G Mobility & Gait Start: 05/23/24 07:28 Freq: Status: Active Protocol: Document 05/23/24 07:28 NM (Rec: 05/23/24 08:16 NM [id number]) OP Gait Assessment Comments Gait Comments L supination Stair Climbing Evaluation Devices Stair Climbing Assistive Devices Right Railing Technique/Endurance Stair Climbing Direction Ascend and Descend Stair Climbing Technique Step Over Step Number of Steps Climbed 4 Stair Climbing Set # Repetitions (reps) 1 Comments Stair Climbing Comments Pain with descent, demos unsteadiness and knee valgus with descent especially with single leg stability B 4 step down: still demo unsteadiness, increased valgus , poor ankle dorsiflexion and stability on single leg PT-OP-J Posture/Palpation/Skin Start: 05/23/24 07:28 Freq: Status: Active Protocol: Document 05/23/24 07:28 NM (Rec: 05/23/24 15:45 NM [id number]) Posture Evaluation Position Standing Head/C-Spine Posture Forward Head Pelvis Posture Anteriorly Tilted Hip Posture (L) Externally Rotated,(R) Externally Rotated Knee Posture (L) Genu Valgus,(R) Genu Valgus Patellar Posture (L) Superior,(R) Superior,(R) Laterally Tilted Ankle/Foot Posture (L) Pronated,(R) Pronated Foot Arch (L) Low Arch,(R) Low Arch Palpation Assessment Location R knee Palpation Details Tenderness along medial knee No tenderness with patellar mobilizations Palpable bulge behind lateral knee, mild tenderness L knee Palpation Details Tenderness along fibular head to lateral joint line No tenderness along medial joint line or with patellar mobilizations PT-OP-K Range of Motion Start: 05/23/24 07:28 Freq: Status: Active Protocol: Document 05/23/24 07:28 NM (Rec: 05/23/24 08:16 NM [id number]) Hip Goniometric Range of Motion Hip Right Internal Rotation 20 External Rotation 25 Left Internal Rotation 28 External Rotation 30 Knee Goniometric Range of Motion Knee Right Flexion Active (degrees) 125 Extension Active (degrees) 7 Comments minimal passive ext and flex; no pain with overpressure but stiff Left Flexion Active (degrees) 126 Extension Active (degrees) 1 Comments more passive ext and flex; no pain with overpressure Ankle and Foot Goniometric Range of Motion Ankle and Foot Right Dorsiflexion with Knee Flexed 4 Plantarflexion 45 Inversion 25 Eversion 6 Left Dorsiflexion with Knee Flexed 3 Plantarflexion 40 Inversion 20 Eversion 8 PT-OP-L Special Tests Start: 05/23/24 07:28 Freq: Status: Active Protocol: Document 05/23/24 07:28 NM (Rec: 05/23/24 08:16 NM [id number]) Special Tests Knee Special Tests Patellar Grind Test Test Results - Hemant Test Test Results - Libby's Test Results - Varus Test Results - Valgus Test Results + Comments Mild increase in LLE compared to RLE with flexion PT-OP-M Strength Start: 05/23/24 07:28 Freq: Status: Active Protocol: Document 05/23/24 07:28 NM (Rec: 05/23/24 08:16 NM [id number]) Hip Strength Hip Manual Muscle Testing Right Flexion (L2) 4 Good Extension (S1) 4- Good- Abduction 4- Good- Adduction 4 Good External Rotation 4 Good Internal Rotation 4 Good Left Flexion (L2) 4+ Good+ Extension (S1) 4- Good- Abduction 4- Good- External Rotation 4 Good Internal Rotation 4 Good Knee Strength Knee Manual Muscle Testing Right Flexion (S2) 4 Good Extension (L3) 4- Good- Left Flexion (S2) 4 Good Extension (L3) 4- Good- Ankle/Foot Strength Ankle and Foot Manual Muscle Testing Right Dorsiflexion (L4) 4 Good Plantarflexion (S1) 4 Good Inversion 4 Good Eversion (S1) 4 Good Left Dorsiflexion (L4) 4 Good Plantarflexion (S1) 4 Good Inversion 4 Good Eversion (S1) 4 Good PT-OP-Q Treatments Start: 05/23/24 07:28 Freq: Status: Active Protocol: Document 05/30/24 07:29 NM (Rec: 05/30/24 08:17 NM [id number]) Therapeutic Exercises Supine Exercises SLR Supine Exercise Name HEP review - performed in sitting Side bilateral Reps/Minutes 10 ea Comments cued quad set throughout ROM bridge Supine Exercise Name trial single leg bridge next session Sitting Exercises Hamstring stretch Sitting Exercise Name with AP self mob- HEP Side bilateral Equipment Used gait belt on foot Reps/Minutes 60 Comments cued for less intense mob for comfort quad set Side bilateral Equipment Used towel roll under knee Reps/Minutes 15 w/ 3 ea Comments pain free; good activation; post manual Standing Exercises calf stretch Standing Exercise Name 1. gastrocnemius, 2. soleus Side bilateral Equipment Used JACQUELINE Reps/Minutes 60 ea Comments trialed staggered stance but does not feel stretch hip flexor stretch Standing Exercise Name 1. neutral w/ ppt, 2. with hip IR Side bilateral Equipment Used @ stairs, foot on 2nd step Reps/Minutes 30 ea position, ea leg Comments pain free TKE Side bilateral Resistance level 3 band, band around knees Equipment Used hand support for balance Reps/Minutes 15 ea Comments no pain; good quad activation Other Exercises self soft tissue mobilization Other Exercise Name quad, TFL, HS, calf Side bilateral Equipment Used using green dock hand Reps/Minutes 4 min total Comments edu for use at home Manual Therapy Treatment Consent Patient gave verbal consent for manual Yes treatment Soft Tissue Mobilization R knee Body Location calf, HS, quad, TFL, peripatellar, ITB Mobilization Type Rolling,Strumming,Sustained Pressure Intensity/Depth Moderate Body Position Supine Comments Monitored for pain. Less swelling behind lateral knee near distal HS. HS and ITB most limited L knee Body Location calf, HS, quad, TFL, peripatellar Mobilization Type Rolling,Strumming,Sustained Pressure Intensity/Depth Moderate Body Position Supine Comments Monitored for pain. Tightness at hamstrings Joint Mobilizations R knee Joint patellar; tibiofemoral Direction sup/inf/med/lat; PA/AP w/ tibial ER for screwhome Grade II Body Position Supine,sit Reps/Duration 3x10 ea Comments Monitored for pain. Limited mobility into ext but improved into end range today with screwhome L knee Joint patellar; proximal tibiofibular Direction sup/inf/med/lat; PA/AP w/ tibial ER for screwhome Grade II Body Position Supine,sit Reps/Duration 2x10 ea Comments Monitored for pain PT-OP-T Assessment and Plan Start: 05/23/24 07:28 Freq: Status: Active Protocol: Document 05/30/24 07:29 NM (Rec: 05/30/24 08:17 NM [id number]) Physical Therapy Assessment Goals Four Impairment LEFS 64/80 [facility] Goal (LTG) Pt will improve LEFS >64/80 in order to demonstrate improvements in symptom management during ADLs, work, and recreational activities LTG Duration 12 weeks Three Impairment unsteadiness w/ stairs, fear of falling Short Term Goal (STG) Pt will be able to perform at least 8 eccentric step downs without <5/10 knee pain in order to demonstrate improved control during stair management STG Duration 8 weeks [facility] Goal (LTG) Pt will be able to perform at least 12 stairs with <4/10 knee pain with 1 rail or less and no reports of instability during descent for work- related tasks LTG Duration 12 weeks Two Impairment B knee and hip strength limited Short Term Goal (STG) Pt will be IND with HEP at least 3x/wk in order to maximize progression with PT STG Duration 4 weeks [facility] Goal (LTG) Pt will improve B hip and knee strength globally to 4+/5 MMT in order to demonstrate improved stability for squats, tennis, and stairs LTG Duration 12 weeks One Impairment R knee ROM limited Short Term Goal (STG) Pt will improve R knee extension AROM to lacking 3 deg or less to improve TKE for more efficient quad activation during stairs STG Duration 8 weeks [employer] Internship Goal (LTG) Pt will improve B knee extension AROM to at least 1 deg or better in order to improve TKE for more efficient quad activation during stairs LTG Duration 12 weeks Assessment Summary Assessment Pt lacking 4 deg of R knee ext at start of session, lacking 2 degat end of session. Educated on self soft tissue mobilization, especially of hamstrings for HEP. Initiated calf and hip flexor stretching , cueing needed for correct execution; no knee pain with knee flexion during stretch but reports slight knee pain afterward. Better tolerance for TKE at end of session; pt would continue to benefit from quad and glute strengthening to improve control with stairs during work-related tasks. Physical Therapy Plan Frequency and Duration Frequency of Treatment 2x/Week Duration of treatment (weeks) 12 Plan of Care Start Date 05/23/24 Plan of Care End Date 08/19/24 Therapeutic Interventions Therapeutic Interventions Balance Training,Gait Training ,Home Exercise Program,Joint Mobilizations,Manual Therapy, Neuromuscular Re-education, Orthotic/Prosthetic Management ,Patient/Caregiver Education, Self-Care/Home Management, Sensory Integration,Soft Tissue Mobilization,Taping, Therapeutic Activities, Therapeutic Exercises Modalities Cold Pack/Ice Massage,Electric Stimulation,Hot Packs, Ultrasound Other Therapeutic Interventions pelvic realignment, MET Other Referrals/Consults Referrals/Consults Recommended Recommend referral to rheumatology for symptom management as well Next Visit Focus/Plan Next Note Type Treatment Note Next Visit Plan Treat both knees- cont quad and glute strengthening especially into single leg progression as tolerated. progress to single leg bridge (future) and uni squat on leg press, progress into step up/ ecc step down (all directions) , HS stretch, trial hip flexor stretch in 1/2 kneel, lateral stepping, TKE w/ ball > progress to TKE w/ band, trial ankle dorsiflexion mobilization, calf stretch. hip 3 way vs clock, SL balance . Plan of care: quad and glute strength manual treatment: STM, joint mobilizations betito to restore ext Balance training
--- NOTE | 2024-06-02 08:20 | PT.OTN ---
Current Diagnoses Chronic gout, unspecified, with tophus (tophi) (06/02/24) Pain in unspecified joint (06/02/24) Pain in right knee (06/02/24) Pain in left knee (06/02/24) Stiffness of right knee, not elsewhere classified (06/02/24) Stiffness of left knee, not elsewhere classified (06/02/24) Stiffness of unspecified ankle, not elsewhere classified (06/02/24) Other lack of coordination (06/02/24) Weakness (06/02/24) Physical Therapy Treatment Note PT-OP-A Visit Information Start: 05/23/24 07:28 Freq: Status: Active Protocol: Document 06/02/24 07:33 SP (Rec: 06/02/24 08:23 SP [id number]) Out-Patient Physical Therapy Visit Information Visit Information Visit Type Treatment Note Visit Note 24 visits Visit Start Time 07:33 Visit Stop Time 08:20 Visit Number 10/06 Number of [employer] Visits 1 Evaluation Information Evaluation Date 05/23/24 Precautions Precautions Hx gout, fall risk PT-OP-B Current Condition Start: 05/23/24 07:28 Freq: Status: Active Protocol: Document 05/23/24 07:28 NM (Rec: 05/23/24 08:16 NM [id number]) Current Condition History of Current Condition Onset Date early 2023 History of Current Condition Pt presents with B knee pain, usually with activity. Worse with downhill walking, down stairs, skiing, lunges. He reports that he has had to modify playing tennis, has difficulty with stopping quickly and changing direction , in addition to serving. He reports pain began in early 2023. He had a big gout flare up at same time. Had imaging, reflects more OA. Left knee usually bothers him more than the R knee but varies day by day. Has not been referred to health safety specialist for knees but only for gout in February. Has had gout for a few years, has flare ups every 3 months; unsure of cause of flare ups. When he has flare ups, usually at ankles, 2nd toes. He is on medication to manage but is prn, usually on ibuprofen and tylenol. He has not seen rheumatology. No falls, fear of falls especially with going down stairs- feels unstable due to pain. 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 PT-OP-D Balance Start: 05/23/24 16:29 Freq: Status: Active Protocol: Document 05/23/24 07:28 NM (Rec: 05/23/24 16:31 NM [id number]) Balance Tests Single Limb Standing Single Limb- Right 15 sec- inc unsteadiness Single Limb- Left 10 sec - inc unsteadiness PT-OP-E Functional Tests Start: 05/23/24 07:28 Freq: Status: Active Protocol: Document 05/23/24 07:28 NM (Rec: 05/23/24 15:45 NM [id number]) Functional Tests Squat Test Score 5 Comments no pain; feels behind patella, dec ankle/hip mob PT-OP-F Manual Assessment Start: 05/23/24 07:28 Freq: Status: Active Protocol: Document 05/23/24 07:28 NM (Rec: 05/23/24 08:16 NM [id number]) Manual Assessments Soft Tissue Assessment Soft Tissue Mobility Assessment R knee possible johnson cyst - palpable bulge Joint Mobility Assessment Joint Mobility Assessment Increased lateral tracking R knee, decreased R knee ext ROM , limited joint play; no pain L knee has increased passive extension and flexion compared to RLE; limited patellar mobility PT-OP-G Mobility & Gait Start: 05/23/24 07:28 Freq: Status: Active Protocol: Document 05/23/24 07:28 NM (Rec: 05/23/24 08:16 NM [id number]) OP Gait Assessment Comments Gait Comments L supination Stair Climbing Evaluation Devices Stair Climbing Assistive Devices Right Railing Technique/Endurance Stair Climbing Direction Ascend and Descend Stair Climbing Technique Step Over Step Number of Steps Climbed 4 Stair Climbing Set # Repetitions (reps) 1 Comments Stair Climbing Comments Pain with descent, demos unsteadiness and knee valgus with descent especially with single leg stability B 4 step down: still demo unsteadiness, increased valgus , poor ankle dorsiflexion and stability on single leg PT-OP-J Posture/Palpation/Skin Start: 05/23/24 07:28 Freq: Status: Active Protocol: Document 05/23/24 07:28 NM (Rec: 05/23/24 15:45 NM [id number]) Posture Evaluation Position Standing Head/C-Spine Posture Forward Head Pelvis Posture Anteriorly Tilted Hip Posture (L) Externally Rotated,(R) Externally Rotated Knee Posture (L) Genu Valgus,(R) Genu Valgus Patellar Posture (L) Superior,(R) Superior,(R) Laterally Tilted Ankle/Foot Posture (L) Pronated,(R) Pronated Foot Arch (L) Low Arch,(R) Low Arch Palpation Assessment Location R knee Palpation Details Tenderness along medial knee No tenderness with patellar mobilizations Palpable bulge behind lateral knee, mild tenderness L knee Palpation Details Tenderness along fibular head to lateral joint line No tenderness along medial joint line or with patellar mobilizations PT-OP-K Range of Motion Start: 05/23/24 07:28 Freq: Status: Active Protocol: Document 05/23/24 07:28 NM (Rec: 05/23/24 08:16 NM [id number]) Hip Goniometric Range of Motion Hip Right Internal Rotation 20 External Rotation 25 Left Internal Rotation 28 External Rotation 30 Knee Goniometric Range of Motion Knee Right Flexion Active (degrees) 125 Extension Active (degrees) 7 Comments minimal passive ext and flex; no pain with overpressure but stiff Left Flexion Active (degrees) 126 Extension Active (degrees) 1 Comments more passive ext and flex; no pain with overpressure Ankle and Foot Goniometric Range of Motion Ankle and Foot Right Dorsiflexion with Knee Flexed 4 Plantarflexion 45 Inversion 25 Eversion 6 Left Dorsiflexion with Knee Flexed 3 Plantarflexion 40 Inversion 20 Eversion 8 PT-OP-L Special Tests Start: 05/23/24 07:28 Freq: Status: Active Protocol: Document 12/09/24 07:28 NM (Rec: 05/23/24 08:16 NM [id number]) Special Tests Knee Special Tests Patellar Grind Test Test Results - Hemant Test Test Results - Libby's Test Results - Varus Test Results - Valgus Test Results + Comments Mild increase in LLE compared to RLE with flexion PT-OP-M Strength Start: 05/23/24 07:28 Freq: Status: Active Protocol: Document 05/23/24 07:28 NM (Rec: 05/23/24 08:16 NM [id number]) Hip Strength Hip Manual Muscle Testing Right Flexion (L2) 4 Good Extension (S1) 4- Good- Abduction 4- Good- Adduction 4 Good External Rotation 4 Good Internal Rotation 4 Good Left Flexion (L2) 4+ Good+ Extension (S1) 4- Good- Abduction 4- Good- External Rotation 4 Good Internal Rotation 4 Good Knee Strength Knee Manual Muscle Testing Right Flexion (S2) 4 Good Extension (L3) 4- Good- Left Flexion (S2) 4 Good Extension (L3) 4- Good- Ankle/Foot Strength Ankle and Foot Manual Muscle Testing Right Dorsiflexion (L4) 4 Good Plantarflexion (S1) 4 Good Inversion 4 Good Eversion (S1) 4 Good Left Dorsiflexion (L4) 4 Good Plantarflexion (S1) 4 Good Inversion 4 Good Eversion (S1) 4 Good PT-OP-Q Treatments Start: 05/23/24 07:28 Freq: Status: Active Protocol: Document 06/02/24 07:33 SP (Rec: 06/02/24 08:23 SP [id number]) Therapeutic Exercises Supine Exercises HS stretch /c AP Equipment Used strap /c AP calf then grasp behind thigh /c AP Reps/Minutes x10 Yamile each LE Comments good calf and HS mobility stretching bridge Supine Exercise Name 1. Yamile x10 warm up 2. Single bridge added to HEp /c HO Side bilateral Reps/Minutes 1. x10 2. 2x10 Comments cued knee alignment, no pain flexion post manual Sitting Exercises Hamstring stretch Sitting Exercise Name with AP self mob- HEP Side bilateral Equipment Used gait belt on foot (supine) Reps/Minutes 60 Comments cued for less intense mob for comfort Standing Exercises steps Standing Exercise Name lateral- Hold not tolerated Side bilateral Resistance AROM Equipment Used , rail support Reps/Minutes x10 Comments pain into flexion, DC for now Other Exercises self soft tissue mobilization Other Exercise Name quad, TFL, HS, calf, piriformis Side bilateral Equipment Used using green shearing shed hand, tennis ball rolling, MWM Reps/Minutes 4 min total Comments edu for use at home Manual Therapy Treatment Consent Patient gave verbal consent for manual Yes treatment Soft Tissue Mobilization R knee Body Location calf, HS, quad, TFL, peripatellar, ITB, piriformis distal Mobilization Type Instrument Assisted,Rolling, Strumming,Sustained Pressure, Other Intensity/Depth Moderate Body Position Supine & prone Comments Monitored for pain. STMs manual and rolling pin (quad only) & MWM knee flex/ext, IR/ ER, DF/ PF L knee Body Location calf, HS, quad, TFL, peripatellar, ITB, piriformis distal Mobilization Type Instrument Assisted,Rolling, Strumming,Sustained Pressure, Other Intensity/Depth Moderate Body Position Supine & prone Comments Monitored for pain. STMs manual and rolling pin (quad only) & MWM knee flex/ext, IR/ ER, DF/ PF PT-OP-T Assessment and Plan Start: 05/23/24 07:28 Freq: Status: Active Protocol: Document 06/02/24 07:33 SP (Rec: 06/02/24 08:23 SP [id number]) Physical Therapy Assessment Goals Four Impairment LEFS 64/80 Leak [employer] Goal (LTG) Pt will improve LEFS >64/80 in order to demonstrate improvements in symptom management during ADLs, work, and recreational activities LTG Duration 12 weeks Three Impairment unsteadiness w/ stairs, fear of falling Short Term Goal (STG) Pt will be able to perform at least 8 eccentric step downs without <5/10 knee pain in order to demonstrate improved control during stair management STG Duration 8 weeks Intermediate Goal (LTG) Pt will be able to perform at least 12 stairs with <4/10 knee pain with 1 rail or less and no reports of instability during descent for work- related tasks LTG Duration 12 weeks Two Impairment B knee and hip strength limited Short Term Goal (STG) Pt will be IND with HEP at least 3x/wk in order to maximize progression with PT STG Duration 4 weeks [employer] Goal (LTG) Pt will improve B hip and knee strength globally to 4+/5 MMT in order to demonstrate improved stability for squats, tennis, and stairs LTG Duration 12 weeks One Impairment R knee ROM limited Short Term Goal (STG) Pt will improve R knee extension AROM to lacking 3 deg or less to improve TKE for more efficient quad activation during stairs STG Duration 8 weeks [employer] Goal (LTG) Pt will improve B knee extension AROM to at least 1 deg or better in order to improve TKE for more efficient quad activation during stairs LTG Duration 12 weeks Assessment Summary Assessment Pt tolerated manual well, incorporated MWM with ed self use rolling pin and sustained pressure use ball on calf ankle mobility to decreased knee extension and posterior chain tightness with good response, not remeasured. Pt tolerated progression LE strength SL bridge with no pain. Revisited steps with no tolerance due to pain so holding on performance lateral stepping. Physical Therapy Plan Frequency and Duration Frequency of Treatment 2x/Week Duration of treatment (weeks) 12 Plan of Care Start Date 05/23/24 Plan of Care End Date 08/19/24 Therapeutic Interventions Therapeutic Interventions Balance Training,Gait Training ,Home Exercise Program,Joint Mobilizations,Manual Therapy, Neuromuscular Re-education, Orthotic/Prosthetic Management ,Patient/Caregiver Education, Self-Care/Home Management, Sensory Integration,Soft Tissue Mobilization,Taping, Therapeutic Activities, Therapeutic Exercises Modalities Cold Pack/Ice Massage,Electric Stimulation,Hot Packs, Ultrasound Other Therapeutic Interventions pelvic realignment, MET Other Referrals/Consults Referrals/Consults Recommended Recommend referral to rheumatology for symptom management as well Next Visit Focus/Plan Next Note Type Treatment Note Next Visit Plan Next tx assess Single leg press, not tolerate lateral steps last tx reassess next tx . REview SL bridge added last tx. PT POC: Treat both knees- cont quad and glute strengthening especially into single leg progression as tolerated. progress uni squat on leg press, progress into step up/ ecc step down (all directions) , HS stretch, trial hip flexor stretch in 1/2 kneel, lateral stepping, TKE w/ ball > progress to TKE w/ band, trial ankle dorsiflexion mobilization, calf stretch. hip 3 way vs clock, SL balance . Plan of care: quad and glute strength manual treatment: STM, joint mobilizations betito to restore ext Balance training
--- NOTE | 2024-06-14 16:45 | PT.OTN ---
Current Diagnoses Chronic gout, unspecified, with tophus (tophi) (06/14/24) Pain in unspecified joint (06/14/24) Pain in right knee (06/14/24) Pain in left knee (06/14/24) Stiffness of right knee, not elsewhere classified (06/14/24) Stiffness of left knee, not elsewhere classified (06/14/24) Stiffness of unspecified ankle, not elsewhere classified (06/14/24) Other lack of coordination (06/14/24) Weakness (06/14/24) Physical Therapy Treatment Note PT-OP-A Visit Information Start: 05/23/24 07:28 Freq: Status: Active Protocol: Document 06/14/24 14:41 NBM (Rec: 06/14/24 16:37 NBM [id number]) Out-Patient Physical Therapy Visit Information Visit Information Visit Type Treatment Note Visit Note 24 visits Visit Start Time 14:40 Visit Stop Time 15:23 Visit Number 11/05 Number of [employer] Visits 1 PT-OP-B Current Condition Start: 05/23/24 07:28 Freq: Status: Active Protocol: Document 05/23/24 07:28 NM (Rec: 05/23/24 08:16 NM [id number]) Current Condition History of Current Condition Onset Date early 2023 History of Current Condition Pt presents with B knee pain, usually with activity. Worse with downhill walking, down stairs, skiing, lunges. He reports that he has had to modify playing tennis, has difficulty with stopping quickly and changing direction , in addition to serving. He reports pain began in early 2023. He had a big gout flare up at same time. Had imaging, reflects more OA. Left knee usually bothers him more than the R knee but varies day by day. Has not been referred to diesel engine specialist for knees but only for gout in February. Has had gout for a few years, has flare ups every 3 months; unsure of cause of flare ups. When he has flare ups, usually at ankles, 2nd toes. He is on medication to manage but is prn, usually on ibuprofen and tylenol. He has not seen rheumatology. No falls, fear of falls especially with going down stairs- feels unstable due to pain. 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 It's a lot better, but I do wonder if my bike riding is affecting my knees. L knee 2-08/22. He doesn't feel much resistance with TKE and gets nauseous with single leg bridge. He hasn't had severe gout flareup since beginning of year and manages symptoms with osteoarthritis medicine, so wonders if his flare ups every three months were more OA related than gout. Pain is most with lunges and descending stairs. PT-OP-D Balance Start: 05/23/24 16:29 Freq: Status: Active Protocol: Document 05/23/24 07:28 NM (Rec: 05/23/24 16:31 NM [id number]) Balance Tests Single Limb Standing Single Limb- Right 15 sec- inc unsteadiness Single Limb- Left 10 sec - inc unsteadiness PT-OP-E Functional Tests Start: 05/23/24 07:28 Freq: Status: Active Protocol: Document 05/23/24 07:28 NM (Rec: 05/23/24 15:45 NM [id number]) Functional Tests Squat Test Score 5 Comments no pain; feels behind patella, dec ankle/hip mob PT-OP-F Manual Assessment Start: 05/23/24 07:28 Freq: Status: Active Protocol: Document 05/23/24 07:28 NM (Rec: 05/23/24 08:16 NM [id number]) Manual Assessments Soft Tissue Assessment Soft Tissue Mobility Assessment R knee possible johnson cyst - palpable bulge Joint Mobility Assessment Joint Mobility Assessment Increased lateral tracking R knee, decreased R knee ext ROM , limited joint play; no pain L knee has increased passive extension and flexion compared to RLE; limited patellar mobility PT-OP-G Mobility & Gait Start: 05/23/24 07:28 Freq: Status: Active Protocol: Document 05/23/24 07:28 NM (Rec: 05/23/24 08:16 NM [id number]) OP Gait Assessment Comments Gait Comments L supination Stair Climbing Evaluation Devices Stair Climbing Assistive Devices Right Railing Technique/Endurance Stair Climbing Direction Ascend and Descend Stair Climbing Technique Step Over Step Number of Steps Climbed 4 Stair Climbing Set # Repetitions (reps) 1 Comments Stair Climbing Comments Pain with descent, demos unsteadiness and knee valgus with descent especially with single leg stability B 4 step down: still demo unsteadiness, increased valgus , poor ankle dorsiflexion and stability on single leg PT-OP-J Posture/Palpation/Skin Start: 05/23/24 07:28 Freq: Status: Active Protocol: Document 05/23/24 07:28 NM (Rec: 05/23/24 15:45 NM [id number]) Posture Evaluation Position Standing Head/C-Spine Posture Forward Head Pelvis Posture Anteriorly Tilted Hip Posture (L) Externally Rotated,(R) Externally Rotated Knee Posture (L) Genu Valgus,(R) Genu Valgus Patellar Posture (L) Superior,(R) Superior,(R) Laterally Tilted Ankle/Foot Posture (L) Pronated,(R) Pronated Foot Arch (L) Low Arch,(R) Low Arch Palpation Assessment Location R knee Palpation Details Tenderness along medial knee No tenderness with patellar mobilizations Palpable bulge behind lateral knee, mild tenderness L knee Palpation Details Tenderness along fibular head to lateral joint line No tenderness along medial joint line or with patellar mobilizations PT-OP-K Range of Motion Start: 05/23/24 07:28 Freq: Status: Active Protocol: Document 05/23/24 07:28 NM (Rec: 05/23/24 08:16 NM [id number]) Hip Goniometric Range of Motion Hip Right Internal Rotation 20 External Rotation 25 Left Internal Rotation 28 External Rotation 30 Knee Goniometric Range of Motion Knee Right Flexion Active (degrees) 125 Extension Active (degrees) 7 Comments minimal passive ext and flex; no pain with overpressure but stiff Left Flexion Active (degrees) 126 Extension Active (degrees) 1 Comments more passive ext and flex; no pain with overpressure Ankle and Foot Goniometric Range of Motion Ankle and Foot Right Dorsiflexion with Knee Flexed 4 Plantarflexion 45 Inversion 25 Eversion 6 Left Dorsiflexion with Knee Flexed 3 Plantarflexion 40 Inversion 20 Eversion 8 PT-OP-L Special Tests Start: 05/23/24 07:28 Freq: Status: Active Protocol: Document 05/23/24 07:28 NM (Rec: 05/23/24 08:16 NM [id number]) Special Tests Knee Special Tests Patellar Grind Test Test Results - Hemant Test Test Results - Libby's Test Results - Varus Test Results - Valgus Test Results + Comments Mild increase in LLE compared to RLE with flexion PT-OP-M Strength Start: 05/23/24 07:28 Freq: Status: Active Protocol: Document 05/23/24 07:28 NM (Rec: 05/23/24 08:16 NM [id number]) Hip Strength Hip Manual Muscle Testing Right Flexion (L2) 4 Good Extension (S1) 4- Good- Abduction 4- Good- Adduction 4 Good External Rotation 4 Good Internal Rotation 4 Good Left Flexion (L2) 4+ Good+ Extension (S1) 4- Good- Abduction 4- Good- External Rotation 4 Good Internal Rotation 4 Good Knee Strength Knee Manual Muscle Testing Right Flexion (S2) 4 Good Extension (L3) 4- Good- Left Flexion (S2) 4 Good Extension (L3) 4- Good- Ankle/Foot Strength Ankle and Foot Manual Muscle Testing Right Dorsiflexion (L4) 4 Good Plantarflexion (S1) 4 Good Inversion 4 Good Eversion (S1) 4 Good Left Dorsiflexion (L4) 4 Good Plantarflexion (S1) 4 Good Inversion 4 Good Eversion (S1) 4 Good PT-OP-Q Treatments Start: 05/23/24 07:28 Freq: Status: Active Protocol: Document 06/14/24 14:41 NBM (Rec: 06/14/24 16:37 NBM [id number]) Therapeutic Exercises Supine Exercises HS stretch /c AP Equipment Used strap /c AP calf then grasp behind thigh /c AP Reps/Minutes x10 [place] each LE Comments good calf and HS mobility stretching SLR Supine Exercise Name HEP review Side bilateral Reps/Minutes 10 ea Comments cued breath and quad set throughout ROM bridge Supine Exercise Name 1. [place]ar x10 warm up 2. Single bridge added to HEp /c HO Side bilateral Reps/Minutes 1. x10 2. 2x10 Comments cued breathwork, form; pain- free, no nausea reported Sidelying Exercises hip abduction Sidelying Exercise Name HEP Side bilateral Reps/Minutes 2x10 Comments cueing for form Sitting Exercises Hamstring stretch Sitting Exercise Name with AP self mob- HEP (knee ext mob) Side bilateral Equipment Used gait belt on foot (supine) Reps/Minutes 60 Comments cued for less intense mob for comfort Standing Exercises TKE Side bilateral Resistance level 3 band, band around pole Equipment Used hand support for balance Reps/Minutes x10, x10 w/ 5 SH Comments no pain; good quad activation, less hip involv, reports improved resistance Other Exercises self soft tissue mobilization Other Exercise Name quad, TFL, HS, calf, piriformis Side bilateral Equipment Used using green hand clipper, tennis ball rolling, MWM Reps/Minutes 4 min total Therapeutic Activity Therapeutic Activity squatting mechanics Name picking up/setting down object from floor Comments pt demos unstead SL RDL as usual mechanics for picking up small object from floor; edu for hip hinge w/ DL squat to protect knees from additional stress and for pain management - demos improved self- awareness and consistency. Self-Care/Home Management Treatment Education Patient Education Body Mechanics,Home Exercise Program,Joint Protection,Pain Management Other Education HEP review w/ edu re: pain- free range for stretching. Edu to pt re: option for pt to have bike fitting performed. PT-OP-T Assessment and Plan Start: 05/23/24 07:28 Freq: Status: Active Protocol: Document 06/14/24 14:41 [facility] (Rec: 06/14/24 16:37 [facility] [id number]) Physical Therapy Assessment Goals Four Impairment LEFS 64/80 Fruit Checker Goal (LTG) Pt will improve LEFS >64/80 in order to demonstrate improvements in symptom management during ADLs, work, and recreational activities LTG Duration 12 weeks Three Impairment unsteadiness w/ stairs, fear of falling Short Term Goal (STG) Pt will be able to perform at least 8 eccentric step downs without <5/10 knee pain in order to demonstrate improved control during stair management STG Duration 8 weeks Fruit Checker Goal (LTG) Pt will be able to perform at least 12 stairs with <4/10 knee pain with 1 rail or less and no reports of instability during descent for work- related tasks LTG Duration 12 weeks Two Impairment B knee and hip strength limited Short Term Goal (STG) Pt will be IND with HEP at least 3x/wk in order to maximize progression with PT STG Duration 4 weeks Fruit Checker Goal (LTG) Pt will improve B hip and knee strength globally to 4+/5 MMT in order to demonstrate improved stability for squats, tennis, and stairs LTG Duration 12 weeks One Impairment R knee ROM limited Short Term Goal (STG) Pt will improve R knee extension AROM to lacking 3 deg or less to improve TKE for more efficient quad activation during stairs STG Duration 8 weeks Fruit Checker Goal (LTG) Pt will improve B knee extension AROM to at least 1 deg or better in order to improve TKE for more efficient quad activation during stairs LTG Duration 12 weeks Assessment Summary Assessment Treatment focus on HEP review and education. Pt is able to perform painfree SL bridging without nausea when cued for breathwork and form. TKE form and pt feedback for resistance improves with Tb anchored around pole instead of around pt's knees; his self-awareness for limiting hip involvement improves with repetition. He requires cues for breathwork and smaller range for many ex' s due to hip instability and end-range, as with sidelying hip abduction. He is provided training and education for performing hip hinge with squatting mechanics, and for pain-free range of motion with stretching, and re: option for pt to have bike fitting performed. R knee pain monitoried throughout session and does not change from baseline. Physical Therapy Plan Frequency and Duration Frequency of Treatment 2x/Week Duration of treatment (weeks) 12 Plan of Care Start Date 05/23/24 Plan of Care End Date 08/19/24 Therapeutic Interventions Therapeutic Interventions Balance Training,Gait Training ,Home Exercise Program,Joint Mobilizations,Manual Therapy, Neuromuscular Re-education, Orthotic/Prosthetic Management ,Patient/Caregiver Education, Self-Care/Home Management, Sensory Integration,Soft Tissue Mobilization,Taping, Therapeutic Activities, Therapeutic Exercises Modalities Cold Pack/Ice Massage,Electric Stimulation,Hot Packs, Ultrasound Other Therapeutic Interventions pelvic realignment, MET Other Referrals/Consults Referrals/Consults Recommended Recommend referral to rheumatology for symptom management as well Next Visit Focus/Plan Next Note Type Treatment Note Next Visit Plan Check if pt had bike fitting or continues to notice increased knee pain w/ biking. Next tx Review SL bridge and TKE. Trial TKE w/ 4 step-up; assess Single leg press; not tolerate lateral steps 06/02 tx reassess next tx. PT POC: Treat both knees- cont quad and glute strengthening especially into single leg progression as tolerated. progress uni squat on leg press, progress into step up/ ecc step down (all directions) , HS stretch, trial hip flexor stretch in 1/2 kneel, lateral stepping, TKE w/ ball > progress to TKE w/ band, trial ankle dorsiflexion mobilization, calf stretch. hip 3 way vs clock, SL balance . Plan of care: quad and glute strength manual treatment: STM, joint mobilizations betito to restore ext Balance training
--- NOTE | 2024-06-20 16:22 | PT.OTN ---
Current Diagnoses Chronic gout, unspecified, with tophus (tophi) (06/20/24) Pain in unspecified joint (06/20/24) Pain in right knee (06/20/24) Pain in left knee (06/20/24) Stiffness of right knee, not elsewhere classified (06/20/24) Stiffness of left knee, not elsewhere classified (06/20/24) Stiffness of unspecified ankle, not elsewhere classified (06/20/24) Other lack of coordination (06/20/24) Weakness (06/20/24) Physical Therapy Treatment Note PT-OP-A Visit Information Start: 05/23/24 07:28 Freq: Status: Active Protocol: Document 06/20/24 13:47 AB (Rec: 06/20/24 16:22 AB [id number]) Out-Patient Physical Therapy Visit Information Visit Information Visit Type Treatment Note Visit Note 24 visits Visit Start Time 13:49 Visit Stop Time 14:32 Visit Number 12/06 Number of PRACTICE PROFESSIONAL Visits 2 Evaluation Information Evaluation Date 05/23/24 Precautions Precautions Hx gout, fall risk PT-OP-B Current Condition Start: 05/23/24 07:28 Freq: Status: Active Protocol: Document 05/23/24 07:28 NM (Rec: 05/23/24 08:16 NM [id number]) Current Condition History of Current Condition Onset Date early 2023 History of Current Condition Pt presents with B knee pain, usually with activity. Worse with downhill walking, down stairs, skiing, lunges. He reports that he has had to modify playing tennis, has difficulty with stopping quickly and changing direction , in addition to serving. He reports pain began in early 2023. He had a big gout flare up at same time. Had imaging, reflects more OA. Left knee usually bothers him more than the R knee but varies day by day. Has not been referred to orthopedic shoes salesperson for knees but only for gout in February. Has had gout for a few years, has flare ups every 3 months; unsure of cause of flare ups. When he has flare ups, usually at ankles, 2nd toes. He is on medication to manage but is prn, usually on ibuprofen and tylenol. He has not seen rheumatology. No falls, fear of falls especially with going down stairs- feels unstable due to pain. 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 Patient unable to ascertain cause of yesterdays knee pain comment it felt like he dislocated the knee without dislocating. Bike fitting not done due to rain. PT-OP-D Balance Start: 05/23/24 16:29 Freq: Status: Active Protocol: Document 05/23/24 07:28 NM (Rec: 05/23/24 16:31 NM [id number]) Balance Tests Single Limb Standing Single Limb- Right 15 sec- inc unsteadiness Single Limb- Left 10 sec - inc unsteadiness PT-OP-E Functional Tests Start: 05/23/24 07:28 Freq: Status: Active Protocol: Document 05/23/24 07:28 NM (Rec: 05/23/24 15:45 NM [id number]) Functional Tests Squat Test Score 5 Comments no pain; feels behind patella, dec ankle/hip mob PT-OP-F Manual Assessment Start: 05/23/24 07:28 Freq: Status: Active Protocol: Document 05/23/24 07:28 NM (Rec: 05/23/24 08:16 NM [id number]) Manual Assessments Soft Tissue Assessment Soft Tissue Mobility Assessment R knee possible johnson cyst - palpable bulge Joint Mobility Assessment Joint Mobility Assessment Increased lateral tracking R knee, decreased R knee ext ROM , limited joint play; no pain L knee has increased passive extension and flexion compared to RLE; limited patellar mobility PT-OP-G Mobility & Gait Start: 05/23/24 07:28 Freq: Status: Active Protocol: Document 05/23/24 07:28 NM (Rec: 05/23/24 08:16 NM [id number]) OP Gait Assessment Comments Gait Comments L supination Stair Climbing Evaluation Devices Stair Climbing Assistive Devices Right Railing Technique/Endurance Stair Climbing Direction Ascend and Descend Stair Climbing Technique Step Over Step Number of Steps Climbed 4 Stair Climbing Set # Repetitions (reps) 1 Comments Stair Climbing Comments Pain with descent, demos unsteadiness and knee valgus with descent especially with single leg stability B 4 step down: still demo unsteadiness, increased valgus , poor ankle dorsiflexion and stability on single leg PT-OP-J Posture/Palpation/Skin Start: 05/23/24 07:28 Freq: Status: Active Protocol: Document 05/23/24 07:28 NM (Rec: 05/23/24 15:45 NM [id number]) Posture Evaluation Position Standing Head/C-Spine Posture Forward Head Pelvis Posture Anteriorly Tilted Hip Posture (L) Externally Rotated,(R) Externally Rotated Knee Posture (L) Genu Valgus,(R) Genu Valgus Patellar Posture (L) Superior,(R) Superior,(R) Laterally Tilted Ankle/Foot Posture (L) Pronated,(R) Pronated Foot Arch (L) Low Arch,(R) Low Arch Palpation Assessment Location R knee Palpation Details Tenderness along medial knee No tenderness with patellar mobilizations Palpable bulge behind lateral knee, mild tenderness L knee Palpation Details Tenderness along fibular head to lateral joint line No tenderness along medial joint line or with patellar mobilizations PT-OP-K Range of Motion Start: 05/23/24 07:28 Freq: Status: Active Protocol: Document 05/23/24 07:28 NM (Rec: 05/23/24 08:16 NM [id number]) Hip Goniometric Range of Motion Hip Right Internal Rotation 20 External Rotation 25 Left Internal Rotation 28 External Rotation 30 Knee Goniometric Range of Motion Knee Right Flexion Active (degrees) 125 Extension Active (degrees) 7 Comments minimal passive ext and flex; no pain with overpressure but stiff Left Flexion Active (degrees) 126 Extension Active (degrees) 1 Comments more passive ext and flex; no pain with overpressure Ankle and Foot Goniometric Range of Motion Ankle and Foot Right Dorsiflexion with Knee Flexed 4 Plantarflexion 45 Inversion 25 Eversion 6 Left Dorsiflexion with Knee Flexed 3 Plantarflexion 40 Inversion 20 Eversion 8 PT-OP-L Special Tests Start: 05/23/24 07:28 Freq: Status: Active Protocol: Document 05/23/24 07:28 NM (Rec: 05/23/24 08:16 NM [id number]) Special Tests Knee Special Tests Patellar Grind Test Test Results - Hemant Test Test Results - Libby's Test Results - Varus Test Results - Valgus Test Results + Comments Mild increase in LLE compared to RLE with flexion PT-OP-M Strength Start: 05/23/24 07:28 Freq: Status: Active Protocol: Document 05/23/24 07:28 NM (Rec: 05/23/24 08:16 NM [id number]) Hip Strength Hip Manual Muscle Testing Right Flexion (L2) 4 Good Extension (S1) 4- Good- Abduction 4- Good- Adduction 4 Good External Rotation 4 Good Internal Rotation 4 Good Left Flexion (L2) 4+ Good+ Extension (S1) 4- Good- Abduction 4- Good- External Rotation 4 Good Internal Rotation 4 Good Knee Strength Knee Manual Muscle Testing Right Flexion (S2) 4 Good Extension (L3) 4- Good- Left Flexion (S2) 4 Good Extension (L3) 4- Good- Ankle/Foot Strength Ankle and Foot Manual Muscle Testing Right Dorsiflexion (L4) 4 Good Plantarflexion (S1) 4 Good Inversion 4 Good Eversion (S1) 4 Good Left Dorsiflexion (L4) 4 Good Plantarflexion (S1) 4 Good Inversion 4 Good Eversion (S1) 4 Good PT-OP-Q Treatments Start: 05/23/24 07:28 Freq: Status: Active Protocol: Document 06/20/24 13:47 AB (Rec: 06/20/24 16:22 AB [id number]) Therapeutic Exercises Supine Exercises HS stretch /c AP Supine Exercise Name from hooklying Side bilateral Reps/Minutes 60 sec X2 with AROM ankle pumps X 10 bridge Supine Exercise Name single leg bridge Side bilateral Reps/Minutes X10 Comments monitored for pain Standing Exercises glute med isometric Standing Exercise Name HEP Side bilateral Reps/Minutes one minute each LE Comments verbal and visual cues calf stretch Standing Exercise Name 1. gastrocnemius, 2. soleus Side bilateral Equipment Used JACQUELINE Reps/Minutes 60 ea Comments trialed staggered stance but does not feel stretch Manual Therapy Treatment Consent Patient gave verbal consent for manual Yes treatment Soft Tissue Mobilization R knee Body Location calf, HS, quad, TFL, peripatellar, ITB, piriformis distal Mobilization Type Rolling,Strumming,Sustained Pressure,Other Intensity/Depth Moderate Body Position Supine & prone L knee Body Location calf, HS, quad, TFL, peripatellar, ITB, piriformis distal Mobilization Type Cross-Friction,Rolling, Strumming,Sustained Pressure, Other Joint Mobilizations TC joint Joint bilateral Mulligan with movement TC Direction AP Grade III Body Position Standing Reps/Duration X10 x2 bilatera ankles R knee Joint tibiofemoral Direction PA Grade III Body Position Hooklying Reps/Duration 2x10 ea PT-OP-T Assessment and Plan Start: 05/23/24 07:28 Freq: Status: Active Protocol: Document 06/20/24 13:47 AB (Rec: 06/20/24 16:22 AB [id number]) Physical Therapy Assessment Goals Four Impairment LEFS 64/80 Snf Goal (LTG) Pt will improve LEFS >64/80 in order to demonstrate improvements in symptom management during ADLs, work, and recreational activities LTG Duration 12 weeks Three Impairment unsteadiness w/ stairs, fear of falling Short Term Goal (STG) Pt will be able to perform at least 8 eccentric step downs without <5/10 knee pain in order to demonstrate improved control during stair management STG Duration 8 weeks Snf Goal (LTG) Pt will be able to perform at least 12 stairs with <4/10 knee pain with 1 rail or less and no reports of instability during descent for work- related tasks LTG Duration 12 weeks Two Impairment B knee and hip strength limited Short Term Goal (STG) Pt will be IND with HEP at least 3x/wk in order to maximize progression with PT STG Duration 4 weeks Snf Goal (LTG) Pt will improve B hip and knee strength globally to 4+/5 MMT in order to demonstrate improved stability for squats, tennis, and stairs LTG Duration 12 weeks One Impairment R knee ROM limited Short Term Goal (STG) Pt will improve R knee extension AROM to lacking 3 deg or less to improve TKE for more efficient quad activation during stairs STG Duration 8 weeks Talent Scout Goal (LTG) Pt will improve B knee extension AROM to at least 1 deg or better in order to improve TKE for more efficient quad activation during stairs LTG Duration 12 weeks Assessment Summary Assessment Visible decrease in ipsilateral trunk sidebend during ambulation and SLS post glute med activation. Physical Therapy Plan Frequency and Duration Frequency of Treatment 2x/Week Duration of treatment (weeks) 12 Plan of Care Start Date 05/23/24 Plan of Care End Date 08/19/24 Next Visit Focus/Plan Next Note Type Treatment Note Next Visit Plan Check if pt had bike fitting or continues to notice increased knee pain w/ biking. Next tx Review SL bridge and TKE. Trial TKE w/ 4 step-up; assess Single leg press; not tolerate lateral steps 06/02 tx reassess next tx. PT POC: Treat both knees- cont quad and glute strengthening especially into single leg progression as tolerated. progress uni squat on leg press, progress into step up/ ecc step down (all directions) , HS stretch, trial hip flexor stretch in 1/2 kneel, lateral stepping, TKE w/ ball > progress to TKE w/ band, assess danielle to ankle dorsiflexion mobilization, calf stretch. hip 3 way vs clock, SL balance. Plan of care: quad and glute strength manual treatment: STM, joint mobilizations betito to restore ext Balance training
--- NOTE | 2024-06-24 12:54 | PT.OTN ---
Current Diagnoses Chronic gout, unspecified, with tophus (tophi) (06/24/24) Pain in unspecified joint (06/24/24) Pain in right knee (06/24/24) Pain in left knee (06/24/24) Stiffness of right knee, not elsewhere classified (06/24/24) Stiffness of left knee, not elsewhere classified (06/24/24) Stiffness of unspecified ankle, not elsewhere classified (06/24/24) Other lack of coordination (06/24/24) Weakness (06/24/24) Physical Therapy Treatment Note PT-OP-A Visit Information Start: 05/23/24 07:28 Freq: Status: Active Protocol: Document 06/24/24 08:07 AB (Rec: 06/24/24 12:54 AB [id number]) Out-Patient Physical Therapy Visit Information Visit Information Visit Type Treatment Note Visit Note 24 visits Visit Start Time 08:17 Visit Stop Time 09:03 Visit Number 01/05 Number of LOADING SHOVEL OILER Visits 4 Evaluation Information Evaluation Date 05/23/24 PT-OP-B Current Condition Start: 05/23/24 07:28 Freq: Status: Active Protocol: Document 05/23/24 07:28 NM (Rec: 05/23/24 08:16 NM [id number]) Current Condition History of Current Condition Onset Date early 2023 History of Current Condition Pt presents with B knee pain, usually with activity. Worse with downhill walking, down stairs, skiing, lunges. He reports that he has had to modify playing tennis, has difficulty with stopping quickly and changing direction , in addition to serving. He reports pain began in early 2023. He had a big gout flare up at same time. Had imaging, reflects more OA. Left knee usually bothers him more than the R knee but varies day by day. Has not been referred to technical training specialist for knees but only for gout in February. Has had gout for a few years, has flare ups every 3 months; unsure of cause of flare ups. When he has flare ups, usually at ankles, 2nd toes. He is on medication to manage but is prn, usually on ibuprofen and tylenol. He has not seen rheumatology. No falls, fear of falls especially with going down stairs- feels unstable due to pain. 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 right knee lacking 5 deg AROM (supine quad set) left 0 deg. Patient reports he has not yet done the bike fitting attributes to rainy weather. PT-OP-D Balance Start: 05/23/24 16:29 Freq: Status: Active Protocol: Document 05/23/24 07:28 NM (Rec: 05/23/24 16:31 NM [id number]) Balance Tests Single Limb Standing Single Limb- Right 15 sec- inc unsteadiness Single Limb- Left 10 sec - inc unsteadiness PT-OP-E Functional Tests Start: 05/23/24 07:28 Freq: Status: Active Protocol: Document 05/23/24 07:28 NM (Rec: 05/23/24 15:45 NM [id number]) Functional Tests Squat Test Score 5 Comments no pain; feels behind patella, dec ankle/hip mob PT-OP-F Manual Assessment Start: 05/23/24 07:28 Freq: Status: Active Protocol: Document 05/23/24 07:28 NM (Rec: 05/23/24 08:16 NM [id number]) Manual Assessments Soft Tissue Assessment Soft Tissue Mobility Assessment R knee possible johnson cyst - palpable bulge Joint Mobility Assessment Joint Mobility Assessment Increased lateral tracking R knee, decreased R knee ext ROM , limited joint play; no pain L knee has increased passive extension and flexion compared to RLE; limited patellar mobility PT-OP-G Mobility & Gait Start: 05/23/24 07:28 Freq: Status: Active Protocol: Document 05/23/24 07:28 NM (Rec: 05/23/24 08:16 NM [id number]) OP Gait Assessment Comments Gait Comments L supination Stair Climbing Evaluation Devices Stair Climbing Assistive Devices Right Railing Technique/Endurance Stair Climbing Direction Ascend and Descend Stair Climbing Technique Step Over Step Number of Steps Climbed 4 Stair Climbing Set # Repetitions (reps) 1 Comments Stair Climbing Comments Pain with descent, demos unsteadiness and knee valgus with descent especially with single leg stability B 4 step down: still demo unsteadiness, increased valgus , poor ankle dorsiflexion and stability on single leg PT-OP-J Posture/Palpation/Skin Start: 05/23/24 07:28 Freq: Status: Active Protocol: Document 05/23/24 07:28 NM (Rec: 05/23/24 15:45 NM [id number]) Posture Evaluation Position Standing Head/C-Spine Posture Forward Head Pelvis Posture Anteriorly Tilted Hip Posture (L) Externally Rotated,(R) Externally Rotated Knee Posture (L) Genu Valgus,(R) Genu Valgus Patellar Posture (L) Superior,(R) Superior,(R) Laterally Tilted Ankle/Foot Posture (L) Pronated,(R) Pronated Foot Arch (L) Low Arch,(R) Low Arch Palpation Assessment Location R knee Palpation Details Tenderness along medial knee No tenderness with patellar mobilizations Palpable bulge behind lateral knee, mild tenderness L knee Palpation Details Tenderness along fibular head to lateral joint line No tenderness along medial joint line or with patellar mobilizations PT-OP-K Range of Motion Start: 05/23/24 07:28 Freq: Status: Active Protocol: Document 05/23/24 07:28 NM (Rec: 05/23/24 08:16 NM [id number]) Hip Goniometric Range of Motion Hip Right Internal Rotation 20 External Rotation 25 Left Internal Rotation 28 External Rotation 30 Knee Goniometric Range of Motion Knee Right Flexion Active (degrees) 125 Extension Active (degrees) 7 Comments minimal passive ext and flex; no pain with overpressure but stiff Left Flexion Active (degrees) 126 Extension Active (degrees) 1 Comments more passive ext and flex; no pain with overpressure Ankle and Foot Goniometric Range of Motion Ankle and Foot Right Dorsiflexion with Knee Flexed 4 Plantarflexion 45 Inversion 25 Eversion 6 Left Dorsiflexion with Knee Flexed 3 Plantarflexion 40 Inversion 20 Eversion 8 PT-OP-L Special Tests Start: 05/23/24 07:28 Freq: Status: Active Protocol: Document 05/23/24 07:28 NM (Rec: 05/23/24 08:16 NM [id number]) Special Tests Knee Special Tests Patellar Grind Test Test Results - Hemant Test Test Results - Libby's Test Results - Varus Test Results - Valgus Test Results + Comments Mild increase in LLE compared to RLE with flexion PT-OP-M Strength Start: 05/23/24 07:28 Freq: Status: Active Protocol: Document 05/23/24 07:28 NM (Rec: 05/23/24 08:16 NM [id number]) Hip Strength Hip Manual Muscle Testing Right Flexion (L2) 4 Good Extension (S1) 4- Good- Abduction 4- Good- Adduction 4 Good External Rotation 4 Good Internal Rotation 4 Good Left Flexion (L2) 4+ Good+ Extension (S1) 4- Good- Abduction 4- Good- External Rotation 4 Good Internal Rotation 4 Good Knee Strength Knee Manual Muscle Testing Right Flexion (S2) 4 Good Extension (L3) 4- Good- Left Flexion (S2) 4 Good Extension (L3) 4- Good- Ankle/Foot Strength Ankle and Foot Manual Muscle Testing Right Dorsiflexion (L4) 4 Good Plantarflexion (S1) 4 Good Inversion 4 Good Eversion (S1) 4 Good Left Dorsiflexion (L4) 4 Good Plantarflexion (S1) 4 Good Inversion 4 Good Eversion (S1) 4 Good PT-OP-Q Treatments Start: 05/23/24 07:28 Freq: Status: Active Protocol: Document 06/24/24 08:07 AB (Rec: 06/24/24 12:54 AB [id number]) Therapeutic Exercises Supine Exercises HS stretch /c AP Supine Exercise Name from hooklying Side bilateral Reps/Minutes 60 sec X 2 right X 1 with strap Comments verbal cues bridge Supine Exercise Name single leg bridge Side bilateral Reps/Minutes X10 Comments monitored for pain Standing Exercises glute med isometric Standing Exercise Name HEP Side bilateral Reps/Minutes one minute each LE Comments verbal and visual cues steps Standing Exercise Name 4 inch step fwd then back Side bilateral Resistance AROM Equipment Used , rail support Reps/Minutes x15 R X10 L then X 3 left post calf stretches and MWM Comments 1-07/25 pat pain L with step up calf stretch Standing Exercise Name 1. gastrocnemius, 2. soleus Side bilateral Equipment Used JACQUELINE Reps/Minutes 60 ea X2 TKE Side bilateral Resistance level 3 band, band around pole Equipment Used hand support for balance Reps/Minutes x10, Comments band held by therapist Pt reports having no pain Manual Therapy Treatment Consent Patient gave verbal consent for manual Yes treatment Soft Tissue Mobilization R knee Body Location Right hamstring Mobilization Type Rolling,Strumming,Sustained Pressure,Other Intensity/Depth Moderate Body Position Prone Joint Mobilizations TC joint Joint bilateral Mulligan with movement TC Direction AP Grade III Body Position Standing Reps/Duration X10 x2 bilatera ankles R knee Joint tibiofemoral and patellar mobs Direction PA Grade III Body Position Hooklying Reps/Duration 2x10 ea Comments pat mob inf, sup, CW CCW med lat right X 6 each direct PT-OP-T Assessment and Plan Start: 05/23/24 07:28 Freq: Status: Active Protocol: Document 06/24/24 08:07 AB (Rec: 06/24/24 12:54 AB [id number]) Physical Therapy Assessment Goals Four Impairment LEFS 64/80 Mcc Goal (LTG) Pt will improve LEFS >64/80 in order to demonstrate improvements in symptom management during ADLs, work, and recreational activities LTG Duration 12 weeks Three Impairment unsteadiness w/ stairs, fear of falling Short Term Goal (STG) Pt will be able to perform at least 8 eccentric step downs without <5/10 knee pain in order to demonstrate improved control during stair management STG Duration 8 weeks Mcc Goal (LTG) Pt will be able to perform at least 12 stairs with <4/10 knee pain with 1 rail or less and no reports of instability during descent for work- related tasks LTG Duration 12 weeks Two Impairment B knee and hip strength limited Short Term Goal (STG) Pt will be IND with HEP at least 3x/wk in order to maximize progression with PT STG Duration 4 weeks Retread Supervisor Goal (LTG) Pt will improve B hip and knee strength globally to 4+/5 MMT in order to demonstrate improved stability for squats, tennis, and stairs LTG Duration 12 weeks One Impairment R knee ROM limited Short Term Goal (STG) Pt will improve R knee extension AROM to lacking 3 deg or less to improve TKE for more efficient quad activation during stairs STG Duration 8 weeks Retread Supervisor Goal (LTG) Pt will improve B knee extension AROM to at least 1 deg or better in order to improve TKE for more efficient quad activation during stairs LTG Duration 12 weeks Assessment Summary Assessment Bandar reports lateral right ankle is a little sore end of session. left LE step up limited by patellar pain. Physical Therapy Plan Frequency and Duration Frequency of Treatment 2x/Week Duration of treatment (weeks) 12 Plan of Care Start Date 05/23/24 Plan of Care End Date 08/19/24 Next Visit Focus/Plan Next Note Type Treatment Note Next Visit Plan Check if pt had bike fitting or continues to notice increased knee pain w/ biking. Next tx revisit TKE w/ 4 step-up with manual to left LE pre step up; assess Single leg press; not tolerate lateral steps 06/02 tx reassess next tx. PT POC: Treat both knees- cont quad and glute strengthening especially into single leg progression as tolerated. progress uni squat on leg press, progress into step up/ ecc step down (all directions) , HS stretch, trial hip flexor stretch in 1/2 kneel, l assess danielle to ankle dorsiflexion mobilization, calf stretch. hip 3 way vs clock, SL balance. Plan of care: quad and glute strength manual treatment: STM, joint mobilizations betito to restore ext Balance training
--- NOTE | 2024-06-27 11:03 | PT.OTN ---
Current Diagnoses Chronic gout, unspecified, with tophus (tophi) (06/27/24) Pain in unspecified joint (06/27/24) Pain in right knee (06/27/24) Pain in left knee (06/27/24) Stiffness of right knee, not elsewhere classified (06/27/24) Stiffness of left knee, not elsewhere classified (06/27/24) Stiffness of unspecified ankle, not elsewhere classified (06/27/24) Other lack of coordination (06/27/24) Weakness (06/27/24) Physical Therapy Treatment Note PT-OP-A Visit Information Start: 05/23/24 07:28 Freq: Status: Active Protocol: Document 06/27/24 07:30 NM (Rec: 06/27/24 08:18 NM [id number]) Out-Patient Physical Therapy Visit Information Visit Information Visit Type Progress Note Visit Start Time 07:33 Visit Stop Time 08:15 Visit Number 8 (09/05 for 2024) Evaluation Information Evaluation Date 05/23/24 Precautions Precautions Hx gout, fall risk PT-OP-B Current Condition Start: 05/23/24 07:28 Freq: Status: Active Protocol: Document 05/23/24 07:28 NM (Rec: 05/23/24 08:16 NM [id number]) Current Condition History of Current Condition Onset Date early 2023 History of Current Condition Pt presents with B knee pain, usually with activity. Worse with downhill walking, down stairs, skiing, lunges. He reports that he has had to modify playing tennis, has difficulty with stopping quickly and changing direction , in addition to serving. He reports pain began in early 2023. He had a big gout flare up at same time. Had imaging, reflects more OA. Left knee usually bothers him more than the R knee but varies day by day. Has not been referred to scheduling specialist for knees but only for gout in February. Has had gout for a few years, has flare ups every 3 months; unsure of cause of flare ups. When he has flare ups, usually at ankles, 2nd toes. He is on medication to manage but is prn, usually on ibuprofen and tylenol. He has not seen rheumatology. No falls, fear of falls especially with going down stairs- feels unstable due to pain. 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 Pt reports exercises are going well, he reports single leg bridges still make him feel nauseated; reports also felt the other day when working on his car while in supine and moving. Pt reports that he did not have any increase in knee pain with biking; took a different bike this weekend, has a dropper seat and did not notice knee pain; when he uses solid post on other bike, which causes knee pain. Patient Reported Progress Improving PT-OP-D Balance Start: 05/23/24 16:29 Freq: Status: Active Protocol: Document 05/23/24 07:28 NM (Rec: 05/23/24 16:31 NM [id number]) Balance Tests Single Limb Standing Single Limb- Right 15 sec- inc unsteadiness Single Limb- Left 10 sec - inc unsteadiness PT-OP-E Functional Tests Start: 05/23/24 07:28 Freq: Status: Active Protocol: Document 05/23/24 07:28 NM (Rec: 05/23/24 15:45 NM [id number]) Functional Tests Squat Test Score 5 Comments no pain; feels behind patella, dec ankle/hip mob PT-OP-F Manual Assessment Start: 05/23/24 07:28 Freq: Status: Active Protocol: Document 05/23/24 07:28 NM (Rec: 05/23/24 08:16 NM [id number]) Manual Assessments Soft Tissue Assessment Soft Tissue Mobility Assessment R knee possible johnson cyst - palpable bulge Joint Mobility Assessment Joint Mobility Assessment Increased lateral tracking R knee, decreased R knee ext ROM , limited joint play; no pain L knee has increased passive extension and flexion compared to RLE; limited patellar mobility PT-OP-G Mobility & Gait Start: 05/23/24 07:28 Freq: Status: Active Protocol: Document 05/23/24 07:28 NM (Rec: 05/23/24 08:16 NM [id number]) OP Gait Assessment Comments Gait Comments L supination Stair Climbing Evaluation Devices Stair Climbing Assistive Devices Right Railing Technique/Endurance Stair Climbing Direction Ascend and Descend Stair Climbing Technique Step Over Step Number of Steps Climbed 4 Stair Climbing Set # Repetitions (reps) 1 Comments Stair Climbing Comments Pain with descent, demos unsteadiness and knee valgus with descent especially with single leg stability B 4 step down: still demo unsteadiness, increased valgus , poor ankle dorsiflexion and stability on single leg PT-OP-J Posture/Palpation/Skin Start: 05/23/24 07:28 Freq: Status: Active Protocol: Document 05/23/24 07:28 NM (Rec: 05/23/24 15:45 NM [id number]) Posture Evaluation Position Standing Head/C-Spine Posture Forward Head Pelvis Posture Anteriorly Tilted Hip Posture (L) Externally Rotated,(R) Externally Rotated Knee Posture (L) Genu Valgus,(R) Genu Valgus Patellar Posture (L) Superior,(R) Superior,(R) Laterally Tilted Ankle/Foot Posture (L) Pronated,(R) Pronated Foot Arch (L) Low Arch,(R) Low Arch Palpation Assessment Location R knee Palpation Details Tenderness along medial knee No tenderness with patellar mobilizations Palpable bulge behind lateral knee, mild tenderness L knee Palpation Details Tenderness along fibular head to lateral joint line No tenderness along medial joint line or with patellar mobilizations PT-OP-K Range of Motion Start: 05/23/24 07:28 Freq: Status: Active Protocol: Document 06/27/24 07:30 NM (Rec: 06/27/24 08:18 NM [id number]) Knee Goniometric Range of Motion Knee Right Flexion Active (degrees) 135 Extension Active (degrees) 3 Comments minimal passive ext and flex; no pain with overpressure but stiff Left Flexion Active (degrees) 135 Extension Active (degrees) 1 Comments more passive ext and flex; no pain with overpressure PT-OP-L Special Tests Start: 05/23/24 07:28 Freq: Status: Active Protocol: Document 05/23/24 07:28 NM (Rec: 05/23/24 08:16 NM [id number]) Special Tests Knee Special Tests Patellar Grind Test Test Results - Hemant Test Test Results - Libby's Test Results - Varus Test Results - Valgus Test Results + Comments Mild increase in LLE compared to RLE with flexion PT-OP-M Strength Start: 05/23/24 07:28 Freq: Status: Active Protocol: Document 06/27/24 07:30 NM (Rec: 06/27/24 08:18 NM [id number]) Hip Strength Hip Manual Muscle Testing Right Flexion (L2) 4 Good Extension (S1) 4- Good- Abduction 4- Good- Adduction 4 Good External Rotation 4 Good Internal Rotation 4 Good Left Flexion (L2) 4+ Good+ Extension (S1) 4- Good- Abduction 4- Good- External Rotation 4 Good Internal Rotation 4 Good Knee Strength Knee Manual Muscle Testing Right Flexion (S2) 4 Good Extension (L3) 4 Good Left Flexion (S2) 4 Good Extension (L3) 4 Good PT-OP-Q Treatments Start: 05/23/24 07:28 Freq: Status: Active Protocol: Document 06/27/24 07:30 NM (Rec: 06/27/24 08:18 NM [id number]) Therapeutic Exercises Sitting Exercises quad set Sitting Exercise Name warm up Side bilateral Equipment Used towel roll under knee Reps/Minutes 15x2 Standing Exercises single leg squat Standing Exercise Name w/ slider under foot: 1. w/ band, 2. w/o band (HEP) Side bilateral Resistance level 3 band at thighs Equipment Used mirror for visual cues Reps/Minutes 10 ea position w/ band and w/o band Comments cued form, betito hip hinge ankle dorsiflexion mobilization Standing Exercise Name 1. w/o band, 2. w/ band Side bilateral Resistance level 2 band Equipment Used 12 step Reps/Minutes 1. 2, 2. 5 reps (scour to ea toe) Comments pain free; cued keep heel flat glute med isometric Standing Exercise Name standing clam ari at wall Side bilateral Equipment Used foot against wall Reps/Minutes 30 ea Comments cued for set up; verbal review HEP of past exercise steps Standing Exercise Name 1. ecc step down, 2. step up/ back w/ TKE (HEP no TKE) Side bilateral Resistance AROM Equipment Used rail support balance, 4 Reps/Minutes 1. 8 ea, 2. 10 ea w/ band and 10 w/o band Comments cue for knee alignment; 4 step up for home PT-OP-T Assessment and Plan Start: 05/23/24 07:28 Freq: Status: Active Protocol: Document 06/27/24 07:30 NM (Rec: 06/27/24 08:18 NM [id number]) Physical Therapy Assessment Goals Four Impairment LEFS 64/80 Care Home Goal (LTG) Pt will improve LEFS >64/80 in order to demonstrate improvements in symptom management during ADLs, work, and recreational activities 06/27/24: 68/80 LTG Duration 12 weeks MET; PROGRESSING 06/27 Three Impairment unsteadiness w/ stairs, fear of falling Short Term Goal (STG) Pt will be able to perform at least 8 eccentric step downs without <5/10 knee pain in order to demonstrate improved control during stair management 06/27/24: pt reports 0/10 pain B knees, needs cueing for form d/t valgus and compensations STG Duration 8 weeks PROGRESSING 06/27 Care Home Goal (LTG) Pt will be able to perform at least 12 stairs with <4/10 knee pain with 1 rail or less and no reports of instability during descent for work- related tasks LTG Duration 12 weeks Two Impairment B knee and hip strength limited Short Term Goal (STG) Pt will be IND with HEP at least 3x/wk in order to maximize progression with PT 06/27/24: performs HEP 1x/day STG Duration 4 weeks MET 06/27 Senior Network Architect Goal (LTG) Pt will improve B hip and knee strength globally to 4+/5 MMT in order to demonstrate improved stability for squats, tennis, and stairs LTG Duration 12 weeks One Impairment R knee ROM limited Short Term Goal (STG) Pt will improve R knee extension AROM to lacking 3 deg or less to improve TKE for more efficient quad activation during stairs 06/27/24: R knee ext 3 deg ( improve from lacking 7 deg ext ) STG Duration 8 weeks PROGRESSING 06/27 Care Home Goal (LTG) Pt will improve B knee extension AROM to at least 1 deg or better in order to improve TKE for more efficient quad activation during stairs LTG Duration 12 weeks Progress Towards Goals Progress Towards Goals Progressing Toward Goals,Slow Progress due to Activity Tolerance,Goals Met Assessment Summary Assessment Pt tolerated progressions well . Cueing needed for modified single leg squat, including form and breathwork for correct execution. Pt does not have knee pain with step ups, ecccentric step downs, or modified single leg squats today. HEP adjusted and updated for improved carryover and to limit nausea. RLE continues to demonstrate more resistrictions due to weakness and lack of end range extension with exercise, which limits progression with exercises. Physical Therapy Plan Frequency and Duration Frequency of Treatment 2x/Week Duration of treatment (weeks) 12 Plan of Care Start Date 05/23/24 Plan of Care End Date 08/19/24 Therapeutic Interventions Therapeutic Interventions Balance Training,Gait Training ,Home Exercise Program,Joint Mobilizations,Manual Therapy, Neuromuscular Re-education, Orthotic/Prosthetic Management ,Patient/Caregiver Education, Self-Care/Home Management, Sensory Integration,Soft Tissue Mobilization,Taping, Therapeutic Activities, Therapeutic Exercises Modalities Cold Pack/Ice Massage,Electric Stimulation,Hot Packs, Ultrasound Other Therapeutic Interventions pelvic realignment, MET Other Referrals/Consults Referrals/Consults Recommended Recommend referral to rheumatology for symptom management as well Next Visit Focus/Plan Next Note Type Treatment Note Next Visit Plan Assess danielle to step up and SL squat HEP. Progress glute and quad strength. Trial knee ext ari on cables at 0-90 deg intervals. Cont with step up and down (ecc) for form all directions, trial leg press uni squat. Trial progression to SLS for time then progress to clock or hip 3 way. PT POC: Treat both knees- cont quad and glute strengthening especially into single leg progression as tolerated. hip 3 way vs clock, SL balance. Plan of care: quad and glute strength manual treatment: STM, joint mobilizations betito to restore ext Balance training
--- NOTE | 2024-07-04 08:22 | PT.OTN ---
Current Diagnoses Chronic gout, unspecified, with tophus (tophi) (07/04/24) Pain in unspecified joint (07/04/24) Pain in right knee (07/04/24) Pain in left knee (07/04/24) Stiffness of right knee, not elsewhere classified (07/04/24) Stiffness of left knee, not elsewhere classified (07/04/24) Stiffness of unspecified ankle, not elsewhere classified (07/04/24) Other lack of coordination (07/04/24) Weakness (07/04/24) Physical Therapy Treatment Note PT-OP-A Visit Information Start: 05/23/24 07:28 Freq: Status: Active Protocol: Document 07/04/24 07:32 NM (Rec: 07/04/24 08:22 NM [id number]) Out-Patient Physical Therapy Visit Information Visit Information Visit Type Treatment Note Visit Note 24 visits Visit Start Time 07:33 Visit Stop Time 08:16 Visit Number 9 (10/06 for 2024) Evaluation Information Evaluation Date 05/23/24 Precautions Precautions Hx gout, fall risk PT-OP-B Current Condition Start: 05/23/24 07:28 Freq: Status: Active Protocol: Document 05/23/24 07:28 NM (Rec: 05/23/24 08:16 NM [id number]) Current Condition History of Current Condition Onset Date early 2023 History of Current Condition Pt presents with B knee pain, usually with activity. Worse with downhill walking, down stairs, skiing, lunges. He reports that he has had to modify playing tennis, has difficulty with stopping quickly and changing direction , in addition to serving. He reports pain began in early 2023. He had a big gout flare up at same time. Had imaging, reflects more OA. Left knee usually bothers him more than the R knee but varies day by day. Has not been referred to instrumentation specialist for knees but only for gout in February. Has had gout for a few years, has flare ups every 3 months; unsure of cause of flare ups. When he has flare ups, usually at ankles, 2nd toes. He is on medication to manage but is prn, usually on ibuprofen and tylenol. He has not seen rheumatology. No falls, fear of falls especially with going down stairs- feels unstable due to pain. 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 States that felt sore after last session in pm but denies any pain. Did not ride bike. Played tennis over weekend, states no pain in L knee PT-OP-D Balance Start: 05/23/24 16:29 Freq: Status: Active Protocol: Document 05/23/24 07:28 NM (Rec: 05/23/24 16:31 NM [id number]) Balance Tests Single Limb Standing Single Limb- Right 15 sec- inc unsteadiness Single Limb- Left 10 sec - inc unsteadiness PT-OP-E Functional Tests Start: 05/23/24 07:28 Freq: Status: Active Protocol: Document 05/23/24 07:28 NM (Rec: 05/23/24 15:45 NM [id number]) Functional Tests Squat Test Score 5 Comments no pain; feels behind patella, dec ankle/hip mob PT-OP-F Manual Assessment Start: 05/23/24 07:28 Freq: Status: Active Protocol: Document 05/23/24 07:28 NM (Rec: 05/23/24 08:16 NM [id number]) Manual Assessments Soft Tissue Assessment Soft Tissue Mobility Assessment R knee possible johnson cyst - palpable bulge Joint Mobility Assessment Joint Mobility Assessment Increased lateral tracking R knee, decreased R knee ext ROM , limited joint play; no pain L knee has increased passive extension and flexion compared to RLE; limited patellar mobility PT-OP-G Mobility & Gait Start: 05/23/24 07:28 Freq: Status: Active Protocol: Document 05/23/24 07:28 NM (Rec: 05/23/24 08:16 NM [id number]) OP Gait Assessment Comments Gait Comments L supination Stair Climbing Evaluation Devices Stair Climbing Assistive Devices Right Railing Technique/Endurance Stair Climbing Direction Ascend and Descend Stair Climbing Technique Step Over Step Number of Steps Climbed 4 Stair Climbing Set # Repetitions (reps) 1 Comments Stair Climbing Comments Pain with descent, demos unsteadiness and knee valgus with descent especially with single leg stability B 4 step down: still demo unsteadiness, increased valgus , poor ankle dorsiflexion and stability on single leg PT-OP-J Posture/Palpation/Skin Start: 05/23/24 07:28 Freq: Status: Active Protocol: Document 05/23/24 07:28 NM (Rec: 05/23/24 15:45 NM [id number]) Posture Evaluation Position Standing Head/C-Spine Posture Forward Head Pelvis Posture Anteriorly Tilted Hip Posture (L) Externally Rotated,(R) Externally Rotated Knee Posture (L) Genu Valgus,(R) Genu Valgus Patellar Posture (L) Superior,(R) Superior,(R) Laterally Tilted Ankle/Foot Posture (L) Pronated,(R) Pronated Foot Arch (L) Low Arch,(R) Low Arch Palpation Assessment Location R knee Palpation Details Tenderness along medial knee No tenderness with patellar mobilizations Palpable bulge behind lateral knee, mild tenderness L knee Palpation Details Tenderness along fibular head to lateral joint line No tenderness along medial joint line or with patellar mobilizations PT-OP-K Range of Motion Start: 05/23/24 07:28 Freq: Status: Active Protocol: Document 06/27/24 07:30 NM (Rec: 06/27/24 08:18 NM [id number]) Knee Goniometric Range of Motion Knee Right Flexion Active (degrees) 135 Extension Active (degrees) 3 Comments minimal passive ext and flex; no pain with overpressure but stiff Left Flexion Active (degrees) 135 Extension Active (degrees) 1 Comments more passive ext and flex; no pain with overpressure PT-OP-L Special Tests Start: 05/23/24 07:28 Freq: Status: Active Protocol: Document 05/23/24 07:28 NM (Rec: 05/23/24 08:16 NM [id number]) Special Tests Knee Special Tests Patellar Grind Test Test Results - Hemant Test Test Results - Libby's Test Results - Varus Test Results - Valgus Test Results + Comments Mild increase in LLE compared to RLE with flexion PT-OP-M Strength Start: 05/23/24 07:28 Freq: Status: Active Protocol: Document 06/27/24 07:30 NM (Rec: 06/27/24 08:18 NM [id number]) Hip Strength Hip Manual Muscle Testing Right Flexion (L2) 4 Good Extension (S1) 4- Good- Abduction 4- Good- Adduction 4 Good External Rotation 4 Good Internal Rotation 4 Good Left Flexion (L2) 4+ Good+ Extension (S1) 4- Good- Abduction 4- Good- External Rotation 4 Good Internal Rotation 4 Good Knee Strength Knee Manual Muscle Testing Right Flexion (S2) 4 Good Extension (L3) 4 Good Left Flexion (S2) 4 Good Extension (L3) 4 Good PT-OP-Q Treatments Start: 05/23/24 07:28 Freq: Status: Active Protocol: Document 07/04/24 07:32 NM (Rec: 07/04/24 08:22 NM [id number]) Therapeutic Exercises Standing Exercises single leg heel raises Side bilateral Equipment Used hand support at wall Reps/Minutes 2x10 Comments R more challenging, relies on momentum RDL Standing Exercise Name staggered w/ foot on wall- HEP Side bilateral Reps/Minutes 10 w/o wt Comments cued neutral spine deadlift Standing Exercise Name following bottom's up Side bilateral Resistance dowel with 5# weight attached Reps/Minutes 15 bottom's up Standing Exercise Name HS stretch Side bilateral Equipment Used 12 > 8 step Reps/Minutes 10 breaths at ea position single leg squat Standing Exercise Name HEP review (band added to HEP, provided level 1 band) Side bilateral Resistance level 1 band at ankles Equipment Used slider under foot Reps/Minutes 2x10 Comments improved hinge; cued to do full ROM squat, RLE harder to control ankle dorsiflexion mobilization Standing Exercise Name w/ band Side bilateral Resistance level 5 band Equipment Used 2nd step, pt holding band with foot Reps/Minutes 20 Comments good form; post manual tx Manual Therapy Treatment Consent Patient gave verbal consent for manual Yes treatment Soft Tissue Mobilization R knee Body Location Right hamstring, quad, calf Mobilization Type Rolling,Strumming,Sustained Pressure,Other Intensity/Depth Moderate Comments performed in hooklying and prone. Increased restrictions of hamstring today Joint Mobilizations TC joint Joint TC joint -R Direction AP Grade III Body Position Supine Reps/Duration 2x30 R knee Joint tibiofemoral and patellar mobs Direction PA Grade III Body Position Sitting Reps/Duration 2x10 ea Comments Performed in sitting with screwhome ext mechanics for end range TKE PT-OP-T Assessment and Plan Start: 05/23/24 07:28 Freq: Status: Active Protocol: Document 07/04/24 07:32 NM (Rec: 07/04/24 08:22 NM [id number]) Physical Therapy Assessment Goals Four Impairment LEFS 64/80 Log Rafter Goal (LTG) Pt will improve LEFS >64/80 in order to demonstrate improvements in symptom management during ADLs, work, and recreational activities 06/27/24: 68/80 LTG Duration 12 weeks MET; PROGRESSING 06/27 Three Impairment unsteadiness w/ stairs, fear of falling Short Term Goal (STG) Pt will be able to perform at least 8 eccentric step downs without <5/10 knee pain in order to demonstrate improved control during stair management 06/27/24: pt reports 0/10 pain B knees, needs cueing for form d/t valgus and compensations STG Duration 8 weeks PROGRESSING 06/27 Log Rafter Goal (LTG) Pt will be able to perform at least 12 stairs with <4/10 knee pain with 1 rail or less and no reports of instability during descent for work- related tasks LTG Duration 12 weeks Two Impairment B knee and hip strength limited Short Term Goal (STG) Pt will be IND with HEP at least 3x/wk in order to maximize progression with PT 06/27/24: performs HEP 1x/day STG Duration 4 weeks MET 06/27 Alf Goal (LTG) Pt will improve B hip and knee strength globally to 4+/5 MMT in order to demonstrate improved stability for squats, tennis, and stairs LTG Duration 12 weeks One Impairment R knee ROM limited Short Term Goal (STG) Pt will improve R knee extension AROM to lacking 3 deg or less to improve TKE for more efficient quad activation during stairs 06/27/24: R knee ext 3 deg ( improve from lacking 7 deg ext ) STG Duration 8 weeks PROGRESSING 06/27 Alf Goal (LTG) Pt will improve B knee extension AROM to at least 1 deg or better in order to improve TKE for more efficient quad activation during stairs LTG Duration 12 weeks Assessment Summary Assessment Pt lacking 5 deg of ext at start of session, has 0 deg ext actively at end of session ; still has observable difference compared to LLE. Initiated single leg training with supported RDL and heel raise for improved stability during higher level recreational activities. Good feedback for glute-hamstring training with supported single leg RDL. RLE continues to be weaker and limited by restrictions in ankle mobility and strength. Pt would continue to benefit from skilled PT for progressive strengthening and flexibility to improve pain management during exercise and during work related tasks. Physical Therapy Plan Frequency and Duration Frequency of Treatment 2x/Week Duration of treatment (weeks) 12 Plan of Care Start Date 05/23/24 Plan of Care End Date 08/19/24 Therapeutic Interventions Therapeutic Interventions Balance Training,Gait Training ,Home Exercise Program,Joint Mobilizations,Manual Therapy, Neuromuscular Re-education, Orthotic/Prosthetic Management ,Patient/Caregiver Education, Self-Care/Home Management, Sensory Integration,Soft Tissue Mobilization,Taping, Therapeutic Activities, Therapeutic Exercises Modalities Cold Pack/Ice Massage,Electric Stimulation,Hot Packs, Ultrasound Other Therapeutic Interventions pelvic realignment, MET Other Referrals/Consults Referrals/Consults Recommended Recommend referral to rheumatology for symptom management as well Next Visit Focus/Plan Next Note Type Treatment Note Next Visit Plan Ankle inv/ev. Trial clock for proprioception. Progress glute and quad strength. 3 way step down on 4, If pain cont, trial knee ext ari on cables at 0-90 deg intervals. Trial leg press uni squat. PT POC: Treat both knees for quad and glute strength manual treatment: STM, joint mobilizations betito to restore ext
--- NOTE | 2024-07-11 08:15 | PT.OTN ---
Current Diagnoses Chronic gout, unspecified, with tophus (tophi) (07/11/24) Pain in unspecified joint (07/11/24) Pain in right knee (07/11/24) Pain in left knee (07/11/24) Stiffness of right knee, not elsewhere classified (07/11/24) Stiffness of left knee, not elsewhere classified (07/11/24) Stiffness of unspecified ankle, not elsewhere classified (07/11/24) Other lack of coordination (07/11/24) Weakness (07/11/24) Physical Therapy Treatment Note PT-OP-A Visit Information Start: 05/23/24 07:28 Freq: Status: Active Protocol: Document 07/11/24 07:30 NM (Rec: 07/11/24 08:15 NM [id number]) Out-Patient Physical Therapy Visit Information Visit Information Visit Type Treatment Note Visit Note 24 visits Visit Start Time 07:31 Visit Stop Time 08:13 Visit Number 10 (11/05 for 2024) Evaluation Information Evaluation Date 05/23/24 Precautions Precautions Hx gout, fall risk PT-OP-B Current Condition Start: 05/23/24 07:28 Freq: Status: Active Protocol: Document 05/23/24 07:28 NM (Rec: 05/23/24 08:16 NM [id number]) Current Condition History of Current Condition Onset Date early 2023 History of Current Condition Pt presents with B knee pain, usually with activity. Worse with downhill walking, down stairs, skiing, lunges. He reports that he has had to modify playing tennis, has difficulty with stopping quickly and changing direction , in addition to serving. He reports pain began in early 2023. He had a big gout flare up at same time. Had imaging, reflects more OA. Left knee usually bothers him more than the R knee but varies day by day. Has not been referred to strategic partnership specialist for knees but only for gout in February. Has had gout for a few years, has flare ups every 3 months; unsure of cause of flare ups. When he has flare ups, usually at ankles, 2nd toes. He is on medication to manage but is prn, usually on ibuprofen and tylenol. He has not seen rheumatology. No falls, fear of falls especially with going down stairs- feels unstable due to pain. 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 He reports pain is not bad, states max 4/10 pain in his knees (RLE using gas pedal and brakes). Exercises from last session were not bad, no nausea unless on his back. He reports has not done too many at work, reports <1/10, less than when started; has not been using rail for stairs, has been going slowly. He adjusted his bike seat 1 cm, which keeps his knees from going over his toes as much PT-OP-D Balance Start: 05/23/24 16:29 Freq: Status: Active Protocol: Document 05/23/24 07:28 NM (Rec: 05/23/24 16:31 NM [id number]) Balance Tests Single Limb Standing Single Limb- Right 15 sec- inc unsteadiness Single Limb- Left 10 sec - inc unsteadiness PT-OP-E Functional Tests Start: 05/23/24 07:28 Freq: Status: Active Protocol: Document 05/23/24 07:28 NM (Rec: 05/23/24 15:45 NM [id number]) Functional Tests Squat Test Score 5 Comments no pain; feels behind patella, dec ankle/hip mob PT-OP-F Manual Assessment Start: 05/23/24 07:28 Freq: Status: Active Protocol: Document 05/23/24 07:28 NM (Rec: 05/23/24 08:16 NM [id number]) Manual Assessments Soft Tissue Assessment Soft Tissue Mobility Assessment R knee possible johnson cyst - palpable bulge Joint Mobility Assessment Joint Mobility Assessment Increased lateral tracking R knee, decreased R knee ext ROM , limited joint play; no pain L knee has increased passive extension and flexion compared to RLE; limited patellar mobility PT-OP-G Mobility & Gait Start: 05/23/24 07:28 Freq: Status: Active Protocol: Document 05/23/24 07:28 NM (Rec: 05/23/24 08:16 NM [id number]) OP Gait Assessment Comments Gait Comments L supination Stair Climbing Evaluation Devices Stair Climbing Assistive Devices Right Railing Technique/Endurance Stair Climbing Direction Ascend and Descend Stair Climbing Technique Step Over Step Number of Steps Climbed 4 Stair Climbing Set # Repetitions (reps) 1 Comments Stair Climbing Comments Pain with descent, demos unsteadiness and knee valgus with descent especially with single leg stability B 4 step down: still demo unsteadiness, increased valgus , poor ankle dorsiflexion and stability on single leg PT-OP-J Posture/Palpation/Skin Start: 05/23/24 07:28 Freq: Status: Active Protocol: Document 05/23/24 07:28 NM (Rec: 05/23/24 15:45 NM [id number]) Posture Evaluation Position Standing Head/C-Spine Posture Forward Head Pelvis Posture Anteriorly Tilted Hip Posture (L) Externally Rotated,(R) Externally Rotated Knee Posture (L) Genu Valgus,(R) Genu Valgus Patellar Posture (L) Superior,(R) Superior,(R) Laterally Tilted Ankle/Foot Posture (L) Pronated,(R) Pronated Foot Arch (L) Low Arch,(R) Low Arch Palpation Assessment Location R knee Palpation Details Tenderness along medial knee No tenderness with patellar mobilizations Palpable bulge behind lateral knee, mild tenderness L knee Palpation Details Tenderness along fibular head to lateral joint line No tenderness along medial joint line or with patellar mobilizations PT-OP-K Range of Motion Start: 05/23/24 07:28 Freq: Status: Active Protocol: Document 06/27/24 07:30 NM (Rec: 06/27/24 08:18 NM [id number]) Knee Goniometric Range of Motion Knee Right Flexion Active (degrees) 135 Extension Active (degrees) 3 Comments minimal passive ext and flex; no pain with overpressure but stiff Left Flexion Active (degrees) 135 Extension Active (degrees) 1 Comments more passive ext and flex; no pain with overpressure PT-OP-L Special Tests Start: 05/23/24 07:28 Freq: Status: Active Protocol: Document 05/23/24 07:28 NM (Rec: 05/23/24 08:16 NM [id number]) Special Tests Knee Special Tests Patellar Grind Test Test Results - Hemant Test Test Results - Libby's Test Results - Varus Test Results - Valgus Test Results + Comments Mild increase in LLE compared to RLE with flexion PT-OP-M Strength Start: 05/23/24 07:28 Freq: Status: Active Protocol: Document 06/27/24 07:30 NM (Rec: 06/27/24 08:18 NM [id number]) Hip Strength Hip Manual Muscle Testing Right Flexion (L2) 4 Good Extension (S1) 4- Good- Abduction 4- Good- Adduction 4 Good External Rotation 4 Good Internal Rotation 4 Good Left Flexion (L2) 4+ Good+ Extension (S1) 4- Good- Abduction 4- Good- External Rotation 4 Good Internal Rotation 4 Good Knee Strength Knee Manual Muscle Testing Right Flexion (S2) 4 Good Extension (L3) 4 Good Left Flexion (S2) 4 Good Extension (L3) 4 Good PT-OP-Q Treatments Start: 05/23/24 07:28 Freq: Status: Active Protocol: Document 07/11/24 07:30 NM (Rec: 07/11/24 08:15 NM [id number]) Cardio Equipment Elliptical Duration (Minutes) 3 Resistance 2 Other trialed in PT; warm up; no knee pain Therapeutic Exercises Sitting Exercises ankle inversion/eversion Sitting Exercise Name HEP Side bilateral Resistance level 2 band Reps/Minutes 20 ea Comments cued set up (fig 4 for inv, loop under opp for ev); challenging at end Standing Exercises step down Standing Exercise Name 1. fwd eccentric lowering, 2. lateral step down Side bilateral Equipment Used 4 step, 2 fingers balance Reps/Minutes 2x5 ea Comments cued level hips, knee align; demos slight valg and hip drop single leg heel raises Side bilateral Equipment Used hand support at wall Reps/Minutes 2x10 Comments RLE cont to be more challenging RDL Standing Exercise Name trialed single leg RDL w/o wall support Side bilateral Resistance AROM Equipment Used 1st set to std chair, 2nd set to 12 box Reps/Minutes 10 ea Comments maintains neutral spine Other Exercises stretching Other Exercise Name 1. hip flexor stretch > c/ quad stretch, 2. HS stretch on step, 3. bottom's Side bilateral Equipment Used 6 step Reps/Minutes 2x30 ea PT-OP-T Assessment and Plan Start: 05/23/24 07:28 Freq: Status: Active Protocol: Document 07/11/24 07:30 NM (Rec: 07/11/24 08:15 NM [id number]) Physical Therapy Assessment Goals Four Impairment LEFS 64/80 Doctor Of Pharmacy Goal (LTG) Pt will improve LEFS >64/80 in order to demonstrate improvements in symptom management during ADLs, work, and recreational activities 06/27/24: 68/80 LTG Duration 12 weeks MET; PROGRESSING 06/27 Three Impairment unsteadiness w/ stairs, fear of falling Short Term Goal (STG) Pt will be able to perform at least 8 eccentric step downs without <5/10 knee pain in order to demonstrate improved control during stair management 06/27/24: pt reports 0/10 pain B knees, needs cueing for form d/t valgus and compensations STG Duration 8 weeks PROGRESSING 06/27 Long-Term Goal (LTG) Pt will be able to perform at least 12 stairs with <4/10 knee pain with 1 rail or less and no reports of instability during descent for work- related tasks LTG Duration 12 weeks Two Impairment B knee and hip strength limited Short Term Goal (STG) Pt will be IND with HEP at least 3x/wk in order to maximize progression with PT 06/27/24: performs HEP 1x/day STG Duration 4 weeks MET 06/27 Long-Term Goal (LTG) Pt will improve B hip and knee strength globally to 4+/5 MMT in order to demonstrate improved stability for squats, tennis, and stairs LTG Duration 12 weeks One Impairment R knee ROM limited Short Term Goal (STG) Pt will improve R knee extension AROM to lacking 3 deg or less to improve TKE for more efficient quad activation during stairs 06/27/24: R knee ext 3 deg ( improve from lacking 7 deg ext ) STG Duration 8 weeks PROGRESSING 06/27 Doctor Of Pharmacy Goal (LTG) Pt will improve B knee extension AROM to at least 1 deg or better in order to improve TKE for more efficient quad activation during stairs LTG Duration 12 weeks Assessment Summary Assessment Pt does not have knee pain during session. Emphasis on quad strengthening, especially eccentric control for improved stair management during descent. Pt demos increased eccentric shaking with fatigue and with lowering due to effort, but has no knee pain. Cueing needed to limit knee valgus and for maintaining alignment. Initiated ankle strengthening to promote better stability while running; cueing needed set up only. RLE continues to be most challenging for pt during exercises due to weakness but becoming more comparable to LLE. Pt starting with lacking 3 deg active R knee ext at start of session, but 0 deg active ext with quad contraction. Pt progressing with independent exercise to promote knee ext strength. Physical Therapy Plan Frequency and Duration Frequency of Treatment 2x/Week Duration of treatment (weeks) 12 Plan of Care Start Date 05/23/24 Plan of Care End Date 08/19/24 Therapeutic Interventions Therapeutic Interventions Balance Training,Gait Training ,Home Exercise Program,Joint Mobilizations,Manual Therapy, Neuromuscular Re-education, Orthotic/Prosthetic Management ,Patient/Caregiver Education, Self-Care/Home Management, Sensory Integration,Soft Tissue Mobilization,Taping, Therapeutic Activities, Therapeutic Exercises Modalities Cold Pack/Ice Massage,Electric Stimulation,Hot Packs, Ultrasound Other Therapeutic Interventions pelvic realignment, MET Other Referrals/Consults Referrals/Consults Recommended Recommend referral to rheumatology for symptom management as well Next Visit Focus/Plan Next Note Type Treatment Note Next Visit Plan Retrial and add to HEP if approp, 3 way step down on 4. Trial clock for proprioception. unilateral leg press. Progress glute and quad strength. If pain cont, trial knee ext ari on cables at 0-90 deg intervals. Cont single leg strengthening: progress to staggered vs single leg RDL, cont single leg heel raise, trial triple ext vs lunging PT POC: Treat both knees for quad and glute strength manual treatment: STM, joint mobilizations betito to restore ext
--- NOTE | 2024-07-21 08:32 | PT.OTN ---
Current Diagnoses Chronic gout, unspecified, with tophus (tophi) (07/21/24) Pain in unspecified joint (07/21/24) Pain in right knee (07/21/24) Pain in left knee (07/21/24) Stiffness of right knee, not elsewhere classified (07/21/24) Stiffness of left knee, not elsewhere classified (07/21/24) Stiffness of unspecified ankle, not elsewhere classified (07/21/24) Other lack of coordination (07/21/24) Weakness (07/21/24) Physical Therapy Treatment Note PT-OP-A Visit Information Start: 05/23/24 07:28 Freq: Status: Active Protocol: Document 07/21/24 07:29 NM (Rec: 07/21/24 08:30 NM [id number]) Out-Patient Physical Therapy Visit Information Visit Information Visit Type Treatment Note Visit Note 24 visits Visit Start Time 07:31 Visit Stop Time 08:18 Visit Number 11 (12/06 for 2024) Evaluation Information Evaluation Date 05/23/24 Precautions Precautions Hx gout, fall risk PT-OP-B Current Condition Start: 05/23/24 07:28 Freq: Status: Active Protocol: Document 05/23/24 07:28 NM (Rec: 05/23/24 08:16 NM [id number]) Current Condition History of Current Condition Onset Date early 2023 History of Current Condition Pt presents with B knee pain, usually with activity. Worse with downhill walking, down stairs, skiing, lunges. He reports that he has had to modify playing tennis, has difficulty with stopping quickly and changing direction , in addition to serving. He reports pain began in early 2023. He had a big gout flare up at same time. Had imaging, reflects more OA. Left knee usually bothers him more than the R knee but varies day by day. Has not been referred to retail experience specialist for knees but only for gout in February. Has had gout for a few years, has flare ups every 3 months; unsure of cause of flare ups. When he has flare ups, usually at ankles, 2nd toes. He is on medication to manage but is prn, usually on ibuprofen and tylenol. He has not seen rheumatology. No falls, fear of falls especially with going down stairs- feels unstable due to pain. 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 States none at rest but with descending stairs, 2/10 B (R feels shaky, L is more painful ). Exercises are helping, medium difficulty. States that R ankle does not feel very flexible with DF/PF motion (e. g. pushing off for tennis), located in front of ankle. PT-OP-D Balance Start: 05/23/24 16:29 Freq: Status: Active Protocol: Document 05/23/24 07:28 NM (Rec: 05/23/24 16:31 NM [id number]) Balance Tests Single Limb Standing Single Limb- Right 15 sec- inc unsteadiness Single Limb- Left 10 sec - inc unsteadiness PT-OP-E Functional Tests Start: 05/23/24 07:28 Freq: Status: Active Protocol: Document 05/23/24 07:28 NM (Rec: 05/23/24 15:45 NM [id number]) Functional Tests Squat Test Score 5 Comments no pain; feels behind patella, dec ankle/hip mob PT-OP-F Manual Assessment Start: 05/23/24 07:28 Freq: Status: Active Protocol: Document 05/23/24 07:28 NM (Rec: 05/23/24 08:16 NM [id number]) Manual Assessments Soft Tissue Assessment Soft Tissue Mobility Assessment R knee possible johnson cyst - palpable bulge Joint Mobility Assessment Joint Mobility Assessment Increased lateral tracking R knee, decreased R knee ext ROM , limited joint play; no pain L knee has increased passive extension and flexion compared to RLE; limited patellar mobility PT-OP-G Mobility & Gait Start: 05/23/24 07:28 Freq: Status: Active Protocol: Document 05/23/24 07:28 NM (Rec: 05/23/24 08:16 NM [id number]) OP Gait Assessment Comments Gait Comments L supination Stair Climbing Evaluation Devices Stair Climbing Assistive Devices Right Railing Technique/Endurance Stair Climbing Direction Ascend and Descend Stair Climbing Technique Step Over Step Number of Steps Climbed 4 Stair Climbing Set # Repetitions (reps) 1 Comments Stair Climbing Comments Pain with descent, demos unsteadiness and knee valgus with descent especially with single leg stability B 4 step down: still demo unsteadiness, increased valgus , poor ankle dorsiflexion and stability on single leg PT-OP-J Posture/Palpation/Skin Start: 05/23/24 07:28 Freq: Status: Active Protocol: Document 05/23/24 07:28 NM (Rec: 05/23/24 15:45 NM [id number]) Posture Evaluation Position Standing Head/C-Spine Posture Forward Head Pelvis Posture Anteriorly Tilted Hip Posture (L) Externally Rotated,(R) Externally Rotated Knee Posture (L) Genu Valgus,(R) Genu Valgus Patellar Posture (L) Superior,(R) Superior,(R) Laterally Tilted Ankle/Foot Posture (L) Pronated,(R) Pronated Foot Arch (L) Low Arch,(R) Low Arch Palpation Assessment Location R knee Palpation Details Tenderness along medial knee No tenderness with patellar mobilizations Palpable bulge behind lateral knee, mild tenderness L knee Palpation Details Tenderness along fibular head to lateral joint line No tenderness along medial joint line or with patellar mobilizations PT-OP-K Range of Motion Start: 05/23/24 07:28 Freq: Status: Active Protocol: Document 06/27/24 07:30 NM (Rec: 06/27/24 08:18 NM [id number]) Knee Goniometric Range of Motion Knee Right Flexion Active (degrees) 135 Extension Active (degrees) 3 Comments minimal passive ext and flex; no pain with overpressure but stiff Left Flexion Active (degrees) 135 Extension Active (degrees) 1 Comments more passive ext and flex; no pain with overpressure PT-OP-L Special Tests Start: 05/23/24 07:28 Freq: Status: Active Protocol: Document 05/23/24 07:28 NM (Rec: 05/23/24 08:16 NM [id number]) Special Tests Knee Special Tests Patellar Grind Test Test Results - Hemant Test Test Results - Libby's Test Results - Varus Test Results - Valgus Test Results + Comments Mild increase in LLE compared to RLE with flexion PT-OP-M Strength Start: 05/23/24 07:28 Freq: Status: Active Protocol: Document 06/27/24 07:30 NM (Rec: 06/27/24 08:18 NM [id number]) Hip Strength Hip Manual Muscle Testing Right Flexion (L2) 4 Good Extension (S1) 4- Good- Abduction 4- Good- Adduction 4 Good External Rotation 4 Good Internal Rotation 4 Good Left Flexion (L2) 4+ Good+ Extension (S1) 4- Good- Abduction 4- Good- External Rotation 4 Good Internal Rotation 4 Good Knee Strength Knee Manual Muscle Testing Right Flexion (S2) 4 Good Extension (L3) 4 Good Left Flexion (S2) 4 Good Extension (L3) 4 Good PT-OP-Q Treatments Start: 05/23/24 07:28 Freq: Status: Active Protocol: Document 07/21/24 07:29 NM (Rec: 07/21/24 08:30 NM [id number]) Gym Equipment Shuttle Recovery unilateral squat Details no pain Resistance 62# (2 navy) Reps/Time 2x12 Therapeutic Exercises Standing Exercises triple ext Standing Exercise Name facing wall Side bilateral Equipment Used heel raise single leg and knee flex contra leg Reps/Minutes 8 ea ankle dorsiflexion mobilization Standing Exercise Name w/ band Side bilateral Resistance level 5 band Equipment Used stool, PT holding band Reps/Minutes 10 scours ea toe Other Exercises stairs Other Exercise Name 13 MAP building Side bilateral Equipment Used reciprocal; 1 rail assist descent only Reps/Minutes 13 (mild knee pain c/ descent, R ankle pain) Comments demos unsteadiness M/L ankle, knee valgus; cued alignment 1/2 kneel Other Exercise Name ankle DF mobilization: 1. toe scours, 2. sustained hold Side bilateral Equipment Used foam pad under knee Reps/Minutes 1. 2 min ea, 2. 5x10 Comments pre: 3.5 from wall, post: 2.5 from wall; no hip comp Manual Therapy Treatment Consent Patient gave verbal consent for manual Yes treatment Soft Tissue Mobilization R knee Body Location Right hamstring, quad, calf Mobilization Type Rolling,Strumming,Sustained Pressure,Other Intensity/Depth Moderate Body Position Hooklying Comments Mild quad restrictions today, reduced with mobilization lacking 1 deg ext, 0 with active ext Joint Mobilizations TC joint Joint R ankle Direction AP Grade III Body Position Supine Reps/Duration 4x30 Comments performed with MWM using PT shoulder R knee Joint patellar Direction sup/inf/med/lat Grade III Body Position Sitting Reps/Duration 2x10 ea Comments still limited sup/inf but less than previously Neuro Re-Education Treatment Balance Activities clock Comments Increased time needed. Trialed with small knee flex but pt has R lateral ankle pain with increased knee flexion; not present with knee slightly more extended. Cueing for soft knee and increased PT-OP-T Assessment and Plan Start: 05/23/24 07:28 Freq: Status: Active Protocol: Document 07/21/24 07:29 NM (Rec: 07/21/24 08:30 NM [id number]) Physical Therapy Assessment Goals Four Impairment LEFS 64/80 Coat Presser Goal (LTG) Pt will improve LEFS >64/80 in order to demonstrate improvements in symptom management during ADLs, work, and recreational activities 06/27/24: 68/80 LTG Duration 12 weeks MET; PROGRESSING 06/27 Three Impairment unsteadiness w/ stairs, fear of falling Short Term Goal (STG) Pt will be able to perform at least 8 eccentric step downs without <5/10 knee pain in order to demonstrate improved control during stair management 06/27/24: pt reports 0/10 pain B knees, needs cueing for form d/t valgus and compensations 06/20/24: pain with descent on stairs, needs rail assist with descent STG Duration 8 weeks PROGRESSING 06/27 Long-Term Goal (LTG) Pt will be able to perform at least 12 stairs with <4/10 knee pain with 1 rail or less and no reports of instability during descent for work- related tasks LTG Duration 12 weeks Two Impairment B knee and hip strength limited Short Term Goal (STG) Pt will be IND with HEP at least 3x/wk in order to maximize progression with PT 06/27/24: performs HEP 1x/day STG Duration 4 weeks MET 06/27 Coat Presser Goal (LTG) Pt will improve B hip and knee strength globally to 4+/5 MMT in order to demonstrate improved stability for squats, tennis, and stairs LTG Duration 12 weeks One Impairment R knee ROM limited Short Term Goal (STG) Pt will improve R knee extension AROM to lacking 3 deg or less to improve TKE for more efficient quad activation during stairs 06/27/24: R knee ext 3 deg ( improve from lacking 7 deg ext ) STG Duration 8 weeks PROGRESSING 06/27 Long-Term Goal (LTG) Pt will improve B knee extension AROM to at least 1 deg or better in order to improve TKE for more efficient quad activation during stairs 07/21/24: lacking 1 deg ext posturally, 0 deg ext with AROM LTG Duration 12 weeks MET 07/21 Assessment Summary Assessment Pt has R ankle pain during session, increased with knee flexion. Initiated proprioceptive training and single leg balance training with clocks; increased time needed, challenging for pt to maintain balance, R>L, and pt unable to perform maintaining form with knee flexion. Continued with sagittal plane ankle mobility without hip compensation to improve translation on stairs. Followed with triple extension to promote better push off and work full ROM ankle dorsiflexion and plantarflexion. Pt would continue to benefit from skilled PT at this time to improve B knee stability and ankle mobility in order to perform job requirements. Physical Therapy Plan Frequency and Duration Frequency of Treatment 2x/Week Duration of treatment (weeks) 12 Plan of Care Start Date 05/23/24 Plan of Care End Date 08/19/24 Therapeutic Interventions Therapeutic Interventions Balance Training,Gait Training ,Home Exercise Program,Joint Mobilizations,Manual Therapy, Neuromuscular Re-education, Orthotic/Prosthetic Management ,Patient/Caregiver Education, Self-Care/Home Management, Sensory Integration,Soft Tissue Mobilization,Taping, Therapeutic Activities, Therapeutic Exercises Modalities Cold Pack/Ice Massage,Electric Stimulation,Hot Packs, Ultrasound Other Therapeutic Interventions pelvic realignment, MET Other Referrals/Consults Referrals/Consults Recommended Recommend referral to rheumatology for symptom management as well Next Visit Focus/Plan Next Note Type Treatment Note Next Visit Plan Assess clock. Retrial and add triple ext, august c/ band. Glute/quad strength: uni squat on press, progress slider squat, 4 step down fwd and lat vs heel elevated squats, knee ext proprioception training, single leg training PT POC: Treat both knees for quad and glute strength manual treatment: STM, joint mobilizations betito to restore ext
--- NOTE | 2024-07-25 12:17 | PT.OTN ---
Current Diagnoses Chronic gout, unspecified, with tophus (tophi) (07/25/24) Pain in unspecified joint (07/25/24) Pain in right knee (07/25/24) Pain in left knee (07/25/24) Stiffness of right knee, not elsewhere classified (07/25/24) Stiffness of left knee, not elsewhere classified (07/25/24) Stiffness of unspecified ankle, not elsewhere classified (07/25/24) Other lack of coordination (07/25/24) Weakness (07/25/24) Physical Therapy Treatment Note PT-OP-A Visit Information Start: 05/23/24 07:28 Freq: Status: Active Protocol: Document 07/25/24 07:29 NM (Rec: 07/25/24 08:16 NM [id number]) Out-Patient Physical Therapy Visit Information Visit Information Visit Type Progress Note Visit Note 24 visits Visit Start Time 07:30 Visit Stop Time 08:15 Visit Number 12 (01/05 for 2024) Evaluation Information Evaluation Date 05/23/24 Precautions Precautions Hx gout, fall risk PT-OP-B Current Condition Start: 05/23/24 07:28 Freq: Status: Active Protocol: Document 05/23/24 07:28 NM (Rec: 05/23/24 08:16 NM [id number]) Current Condition History of Current Condition Onset Date early 2023 History of Current Condition Pt presents with B knee pain, usually with activity. Worse with downhill walking, down stairs, skiing, lunges. He reports that he has had to modify playing tennis, has difficulty with stopping quickly and changing direction , in addition to serving. He reports pain began in early 2023. He had a big gout flare up at same time. Had imaging, reflects more OA. Left knee usually bothers him more than the R knee but varies day by day. Has not been referred to specialist field engineer for knees but only for gout in February. Has had gout for a few years, has flare ups every 3 months; unsure of cause of flare ups. When he has flare ups, usually at ankles, 2nd toes. He is on medication to manage but is prn, usually on ibuprofen and tylenol. He has not seen rheumatology. No falls, fear of falls especially with going down stairs- feels unstable due to pain. 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 Reports improving overall since starting PT. Pt reports less knee pain in general since starting PT, still present when going down stairs (less intense); improvement in strength and balance. Pt reports still has knee pain while descending stairs is still most limiting; however, reports end range pain with R ankle DF (e.g. hard pushing into DF such as taking off). PT-OP-D Balance Start: 05/23/24 16:29 Freq: Status: Active Protocol: Document 05/23/24 07:28 NM (Rec: 05/23/24 16:31 NM [id number]) Balance Tests Single Limb Standing Single Limb- Right 15 sec- inc unsteadiness Single Limb- Left 10 sec - inc unsteadiness PT-OP-E Functional Tests Start: 05/23/24 07:28 Freq: Status: Active Protocol: Document 05/23/24 07:28 NM (Rec: 05/23/24 15:45 NM [id number]) Functional Tests Squat Test Score 5 Comments no pain; feels behind patella, dec ankle/hip mob PT-OP-F Manual Assessment Start: 05/23/24 07:28 Freq: Status: Active Protocol: Document 05/23/24 07:28 NM (Rec: 05/23/24 08:16 NM [id number]) Manual Assessments Soft Tissue Assessment Soft Tissue Mobility Assessment R knee possible johnson cyst - palpable bulge Joint Mobility Assessment Joint Mobility Assessment Increased lateral tracking R knee, decreased R knee ext ROM , limited joint play; no pain L knee has increased passive extension and flexion compared to RLE; limited patellar mobility PT-OP-G Mobility & Gait Start: 05/23/24 07:28 Freq: Status: Active Protocol: Document 05/23/24 07:28 NM (Rec: 05/23/24 08:16 NM [id number]) OP Gait Assessment Comments Gait Comments L supination Stair Climbing Evaluation Devices Stair Climbing Assistive Devices Right Railing Technique/Endurance Stair Climbing Direction Ascend and Descend Stair Climbing Technique Step Over Step Number of Steps Climbed 4 Stair Climbing Set # Repetitions (reps) 1 Comments Stair Climbing Comments Pain with descent, demos unsteadiness and knee valgus with descent especially with single leg stability B 4 step down: still demo unsteadiness, increased valgus , poor ankle dorsiflexion and stability on single leg PT-OP-J Posture/Palpation/Skin Start: 05/23/24 07:28 Freq: Status: Active Protocol: Document 05/23/24 07:28 NM (Rec: 05/23/24 15:45 NM [id number]) Posture Evaluation Position Standing Head/C-Spine Posture Forward Head Pelvis Posture Anteriorly Tilted Hip Posture (L) Externally Rotated,(R) Externally Rotated Knee Posture (L) Genu Valgus,(R) Genu Valgus Patellar Posture (L) Superior,(R) Superior,(R) Laterally Tilted Ankle/Foot Posture (L) Pronated,(R) Pronated Foot Arch (L) Low Arch,(R) Low Arch Palpation Assessment Location R knee Palpation Details Tenderness along medial knee No tenderness with patellar mobilizations Palpable bulge behind lateral knee, mild tenderness L knee Palpation Details Tenderness along fibular head to lateral joint line No tenderness along medial joint line or with patellar mobilizations PT-OP-K Range of Motion Start: 05/23/24 07:28 Freq: Status: Active Protocol: Document 07/25/24 07:29 NM (Rec: 07/25/24 12:17 NM [id number]) Knee Goniometric Range of Motion Knee Right Flexion Active (degrees) 135 Extension Active (degrees) 3 Comments minimal passive ext and flex; no pain with overpressure but stiff Left Flexion Active (degrees) 135 Extension Active (degrees) 1 Comments more passive ext and flex; no pain with overpressure PT-OP-L Special Tests Start: 05/23/24 07:28 Freq: Status: Active Protocol: Document 05/23/24 07:28 NM (Rec: 05/23/24 08:16 NM [id number]) Special Tests Knee Special Tests Patellar Grind Test Test Results - Hemant Test Test Results - Libby's Test Results - Varus Test Results - Valgus Test Results + Comments Mild increase in LLE compared to RLE with flexion PT-OP-M Strength Start: 05/23/24 07:28 Freq: Status: Active Protocol: Document 07/25/24 07:29 NM (Rec: 07/25/24 12:17 NM [id number]) Hip Strength Hip Manual Muscle Testing Right Flexion (L2) 4+ Good+ Extension (S1) 4 Good Abduction 4 Good Adduction 4+ Good+ External Rotation 4+ Good+ Internal Rotation 4+ Good+ Left Flexion (L2) 4+ Good+ Extension (S1) 4 Good Abduction 4 Good Adduction 4+ Good+ External Rotation 4+ Good+ Internal Rotation 4+ Good+ Knee Strength Knee Manual Muscle Testing Right Flexion (S2) 4+ Good+ Extension (L3) 4+ Good+ Left Flexion (S2) 4+ Good+ Extension (L3) 4+ Good+ PT-OP-Q Treatments Start: 05/23/24 07:28 Freq: Status: Active Protocol: Document 07/25/24 07:29 NM (Rec: 07/25/24 08:16 NM [id number]) Therapeutic Exercises Standing Exercises side stepping Side bilateral Resistance level 2 band at feet Reps/Minutes 2x20 ft ea Comments medium-hard, no pain; slight squat position triple ext Standing Exercise Name // to wall Side bilateral Equipment Used heel raise single leg and knee flex contra leg; 1 hand support balance Reps/Minutes 10 ea Comments cued form step down Standing Exercise Name 1. fwd eccentric lowering, 2. lateral step down Side bilateral Equipment Used 6 step, 2 fingers balance Reps/Minutes 8 ea Comments cued level hips, knee align; less hip drop/knee valg c/ cueing Other Exercises stairs Side bilateral Equipment Used reciprocal, no rail Reps/Minutes 12 Comments 1-2/10 pain with descent only; improved stab Manual Therapy Treatment Consent Patient gave verbal consent for manual Yes treatment Soft Tissue Mobilization R knee Body Location Right hamstring, quad, calf Mobilization Type Instrument Assisted,Rolling, Strumming,Sustained Pressure, Other Intensity/Depth Moderate Comments Hooklying, prone. Cupping performed at distal HS: gliding and MWM using knee flex/ext Joint Mobilizations R knee Joint patellar, tibiofemoral Direction sup/inf, med/lat, PA/AP Grade III Body Position Hooklying Reps/Duration 2x10 ea Neuro Re-Education Treatment Balance Activities foam Surface unstable Comments SLS: 2x30 ea rockerboard Surface unstable Equipment a/p, m/l Reps/Duration 10 ea Comments 1. squats 2. ball toss c/ red weighted ball maintains stability clock Details tap w/ slight squat using ea foot @ ea clock face Surface stable Reps/Duration 3 sets ea Comments Improved stability today PT-OP-T Assessment and Plan Start: 05/23/24 07:28 Freq: Status: Active Protocol: Document 07/25/24 07:29 NM (Rec: 07/25/24 08:16 NM [id number]) Physical Therapy Assessment Goals Four Impairment LEFS 64/80 Graduate Intern Goal (LTG) Pt will improve LEFS >64/80 in order to demonstrate improvements in symptom management during ADLs, work, and recreational activities 06/27/24: 68/80 07/25/24: 71/80 LTG Duration 12 weeks MET; PROGRESSING 06/27 Three Impairment unsteadiness w/ stairs, fear of falling Short Term Goal (STG) Pt will be able to perform at least 8 eccentric step downs without <5/10 knee pain in order to demonstrate improved control during stair management 06/27/24: pt reports 0/10 pain B knees, needs cueing for form d/t valgus and compensations 06/20/24: pain with descent on stairs, needs rail assist with descent 07/25/24: 8 eccentric step downs, 1/10 knee painmet 07/25 STG Duration 8 weeks PROGRESSING 06/27 Retirement Goal (LTG) Pt will be able to perform at least 12 stairs with <4/10 knee pain with 1 rail or less and no reports of instability during descent for work- related tasks 07/25/24: 12 stairs, no rail 1- 2/10 pain B knees LTG Duration 12 weeks MET Two Impairment B knee and hip strength limited Short Term Goal (STG) Pt will be IND with HEP at least 3x/wk in order to maximize progression with PT 06/27/24: performs HEP 1x/day STG Duration 4 weeks MET 06/27 Retirement Goal (LTG) Pt will improve B hip and knee strength globally to 4+/5 MMT in order to demonstrate improved stability for squats, tennis, and stairs 07/25/24: 4+/5 for all hip except R abd and ext 4/5, 4+/5 for knee flex/ext LTG Duration 12 weeks PARTIALLY MET One Impairment R knee ROM limited Short Term Goal (STG) Pt will improve R knee extension AROM to lacking 3 deg or less to improve TKE for more efficient quad activation during stairs 06/27/24: R knee ext 3 deg ( improve from lacking 7 deg ext ) STG Duration 8 weeks PROGRESSING 06/27 Retirement Goal (LTG) Pt will improve B knee extension AROM to at least 1 deg or better in order to improve TKE for more efficient quad activation during stairs 07/21/24: lacking 1 deg ext posturally, 0 deg ext with AROM LTG Duration 12 weeks MET 07/21 Progress Towards Goals Progress Towards Goals Progressing Toward Goals,Goals Met Assessment Summary Assessment Pt tolerated session well. Reports 1-2/10 knee pain with stairs but denies increased pain; resolves quickly. Demos improved knee and ankle stability on descent for stairs. Cueing needed for level pelvis and to decrease knee valgus with step down. Introduced proprioceptive training for more stability during static and dynamic tasks. Less ankle instability with stable and unstable surface, including SLS. Physical Therapy Plan Frequency and Duration Frequency of Treatment 2x/Week Duration of treatment (weeks) 12 Plan of Care Start Date 05/23/24 Plan of Care End Date 08/19/24 Therapeutic Interventions Therapeutic Interventions Balance Training,Gait Training ,Home Exercise Program,Joint Mobilizations,Manual Therapy, Neuromuscular Re-education, Orthotic/Prosthetic Management ,Patient/Caregiver Education, Self-Care/Home Management, Sensory Integration,Soft Tissue Mobilization,Taping, Therapeutic Activities, Therapeutic Exercises Modalities Cold Pack/Ice Massage,Electric Stimulation,Hot Packs, Ultrasound Other Therapeutic Interventions pelvic realignment, MET Other Referrals/Consults Referrals/Consults Recommended Recommend referral to rheumatology for symptom management as well Next Visit Focus/Plan Next Note Type Treatment Note Next Visit Plan single leg proprio: stable and unstable, can trial bosu squat. Retrial and add triple ext, march c/ band. Glute/quad strength: uni squat on press, ecc squats, proprioception training, single leg training PT POC: Treat both knees for quad and glute strength manual treatment: STM, joint mobilizations betito to restore ext
--- NOTE | 2024-08-01 08:13 | PT.OTN ---
Current Diagnoses Chronic gout, unspecified, with tophus (tophi) (08/01/24) Pain in unspecified joint (08/01/24) Pain in right knee (08/01/24) Pain in left knee (08/01/24) Stiffness of right knee, not elsewhere classified (08/01/24) Stiffness of left knee, not elsewhere classified (08/01/24) Stiffness of unspecified ankle, not elsewhere classified (08/01/24) Other lack of coordination (08/01/24) Weakness (08/01/24) Physical Therapy Treatment Note PT-OP-A Visit Information Start: 05/23/24 07:28 Freq: Status: Active Protocol: Document 08/01/24 07:35 SP (Rec: 08/01/24 16:47 SP [id number]) Out-Patient Physical Therapy Visit Information Visit Information Visit Type Treatment Note Visit Start Time 07:35 Visit Stop Time 08:13 Visit Number 13 (01/05 for 2024) Number of ENGINEERING MATHEMATICIAN Visits 1 Evaluation Information Evaluation Date 05/23/24 Precautions Precautions Hx gout, fall risk PT-OP-B Current Condition Start: 05/23/24 07:28 Freq: Status: Active Protocol: Document 05/23/24 07:28 NM (Rec: 05/23/24 08:16 NM [id number]) Current Condition History of Current Condition Onset Date early 2023 History of Current Condition Pt presents with B knee pain, usually with activity. Worse with downhill walking, down stairs, skiing, lunges. He reports that he has had to modify playing tennis, has difficulty with stopping quickly and changing direction , in addition to serving. He reports pain began in early 2023. He had a big gout flare up at same time. Had imaging, reflects more OA. Left knee usually bothers him more than the R knee but varies day by day. Has not been referred to volunteer services specialist for knees but only for gout in February. Has had gout for a few years, has flare ups every 3 months; unsure of cause of flare ups. When he has flare ups, usually at ankles, 2nd toes. He is on medication to manage but is prn, usually on ibuprofen and tylenol. He has not seen rheumatology. No falls, fear of falls especially with going down stairs- feels unstable due to pain. 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 Arrives with binder of [facility] . He stated is compliant and has them in an order works best for him. Still little pain descending. PT-OP-D Balance Start: 05/23/24 16:29 Freq: Status: Active Protocol: Document 05/23/24 07:28 NM (Rec: 05/23/24 16:31 NM [id number]) Balance Tests Single Limb Standing Single Limb- Right 15 sec- inc unsteadiness Single Limb- Left 10 sec - inc unsteadiness PT-OP-E Functional Tests Start: 05/23/24 07:28 Freq: Status: Active Protocol: Document 05/23/24 07:28 NM (Rec: 05/23/24 15:45 NM [id number]) Functional Tests Squat Test Score 5 Comments no pain; feels behind patella, dec ankle/hip mob PT-OP-F Manual Assessment Start: 05/23/24 07:28 Freq: Status: Active Protocol: Document 05/23/24 07:28 NM (Rec: 05/23/24 08:16 NM [id number]) Manual Assessments Soft Tissue Assessment Soft Tissue Mobility Assessment R knee possible johnson cyst - palpable bulge Joint Mobility Assessment Joint Mobility Assessment Increased lateral tracking R knee, decreased R knee ext ROM , limited joint play; no pain L knee has increased passive extension and flexion compared to RLE; limited patellar mobility PT-OP-G Mobility & Gait Start: 05/23/24 07:28 Freq: Status: Active Protocol: Document 05/23/24 07:28 NM (Rec: 05/23/24 08:16 NM [id number]) OP Gait Assessment Comments Gait Comments L supination Stair Climbing Evaluation Devices Stair Climbing Assistive Devices Right Railing Technique/Endurance Stair Climbing Direction Ascend and Descend Stair Climbing Technique Step Over Step Number of Steps Climbed 4 Stair Climbing Set # Repetitions (reps) 1 Comments Stair Climbing Comments Pain with descent, demos unsteadiness and knee valgus with descent especially with single leg stability B 4 step down: still demo unsteadiness, increased valgus , poor ankle dorsiflexion and stability on single leg PT-OP-J Posture/Palpation/Skin Start: 05/23/24 07:28 Freq: Status: Active Protocol: Document 05/23/24 07:28 NM (Rec: 05/23/24 15:45 NM [id number]) Posture Evaluation Position Standing Head/C-Spine Posture Forward Head Pelvis Posture Anteriorly Tilted Hip Posture (L) Externally Rotated,(R) Externally Rotated Knee Posture (L) Genu Valgus,(R) Genu Valgus Patellar Posture (L) Superior,(R) Superior,(R) Laterally Tilted Ankle/Foot Posture (L) Pronated,(R) Pronated Foot Arch (L) Low Arch,(R) Low Arch Palpation Assessment Location R knee Palpation Details Tenderness along medial knee No tenderness with patellar mobilizations Palpable bulge behind lateral knee, mild tenderness L knee Palpation Details Tenderness along fibular head to lateral joint line No tenderness along medial joint line or with patellar mobilizations PT-OP-K Range of Motion Start: 05/23/24 07:28 Freq: Status: Active Protocol: Document 07/25/24 07:29 NM (Rec: 07/25/24 12:17 NM [id number]) Knee Goniometric Range of Motion Knee Right Flexion Active (degrees) 135 Extension Active (degrees) 3 Comments minimal passive ext and flex; no pain with overpressure but stiff Left Flexion Active (degrees) 135 Extension Active (degrees) 1 Comments more passive ext and flex; no pain with overpressure PT-OP-L Special Tests Start: 05/23/24 07:28 Freq: Status: Active Protocol: Document 05/23/24 07:28 NM (Rec: 05/23/24 08:16 NM [id number]) Special Tests Knee Special Tests Patellar Grind Test Test Results - Hemant Test Test Results - Libby's Test Results - Varus Test Results - Valgus Test Results + Comments Mild increase in LLE compared to RLE with flexion PT-OP-M Strength Start: 05/23/24 07:28 Freq: Status: Active Protocol: Document 07/25/24 07:29 NM (Rec: 07/25/24 12:17 NM [id number]) Hip Strength Hip Manual Muscle Testing Right Flexion (L2) 4+ Good+ Extension (S1) 4 Good Abduction 4 Good Adduction 4+ Good+ External Rotation 4+ Good+ Internal Rotation 4+ Good+ Left Flexion (L2) 4+ Good+ Extension (S1) 4 Good Abduction 4 Good Adduction 4+ Good+ External Rotation 4+ Good+ Internal Rotation 4+ Good+ Knee Strength Knee Manual Muscle Testing Right Flexion (S2) 4+ Good+ Extension (L3) 4+ Good+ Left Flexion (S2) 4+ Good+ Extension (L3) 4+ Good+ PT-OP-Q Treatments Start: 05/23/24 07:28 Freq: Status: Active Protocol: Document 08/01/24 07:35 SP (Rec: 08/01/24 16:47 SP [id number]) Therapeutic Exercises Supine Exercises HS stretch /c AP Supine Exercise Name from hooklying Side bilateral Reps/Minutes 60 sec X 2 Standing Exercises quad stretch Standing Exercise Name foot on chair vs pull foot to buttocks Side right Reps/Minutes 30 SH x2 Comments good response RDL Standing Exercise Name Single leg RDL w/o wall support Side bilateral Resistance AROM > 5# DB in BUE Equipment Used 1st set to cone on floor 2nd set BUE 5# DBs toward mid buenrostro Reps/Minutes 10 ea Comments maintains neutral spine single leg squat Standing Exercise Name HEP reviewed- SL star glides ( 4 clock positions) Side bilateral Resistance AROM Equipment Used slider under foot, front mirror for self knee alignment Reps/Minutes 3x5 reps each side Comments improved hinge and form today steps Standing Exercise Name ecc step down touch then regular mechanics step fwd down then stairs Side bilateral Resistance AROM Equipment Used rail support PRN balance, 4> 6 Reps/Minutes 8 each depth Comments cue for knee alignment; 4 step up for home TKE Side bilateral Resistance level 3 band, band around pole Equipment Used no UE support Reps/Minutes x10, Comments anchored at //bars Gait Training Gait Activity stair mgt Device Used 0 Distance/Duration 4x4 Treatment Focus jt ROM mechanics Comments no pain or problem post manual , ktaping and ther ex end tx. Manual Therapy Treatment Consent Patient gave verbal consent for manual Yes treatment Soft Tissue Mobilization R knee Body Location Right quad, distal ITB, patellar tendon Mobilization Type Cross-Friction,Strumming Intensity/Depth Moderate Comments Hooklying. Taping Ktaping Body Location R medial patellar glide and Lateral C taping Treatment Focus R medial patellar glide Type of Tape Ktaping Skin Inspection normal color intact Comments good feedback response, no pain with taping during any ther ex. PT-OP-T Assessment and Plan Start: 05/23/24 07:28 Freq: Status: Active Protocol: Document 08/01/24 07:35 SP (Rec: 08/01/24 16:47 SP [id number]) Physical Therapy Assessment Goals Four Impairment LEFS 64/80 Fpc Goal (LTG) Pt will improve LEFS >64/80 in order to demonstrate improvements in symptom management during ADLs, work, and recreational activities 06/27/24: 68/80 07/25/24: 71/80 LTG Duration 12 weeks MET; PROGRESSING 06/27 Three Impairment unsteadiness w/ stairs, fear of falling Short Term Goal (STG) Pt will be able to perform at least 8 eccentric step downs without <5/10 knee pain in order to demonstrate improved control during stair management 06/27/24: pt reports 0/10 pain B knees, needs cueing for form d/t valgus and compensations 06/20/24: pain with descent on stairs, needs rail assist with descent 07/25/24: 8 eccentric step downs, 1/10 knee painmet 10 STG Duration 8 weeks PROGRESSING 06/27 Fpc Goal (LTG) Pt will be able to perform at least 12 stairs with <4/10 knee pain with 1 rail or less and no reports of instability during descent for work- related tasks 07/25/24: 12 stairs, no rail 1- 2/10 pain B knees LTG Duration 12 weeks MET Two Impairment B knee and hip strength limited Short Term Goal (STG) Pt will be IND with HEP at least 3x/wk in order to maximize progression with PT 06/27/24: performs HEP 1x/day STG Duration 4 weeks MET 06/27 Fpc Goal (LTG) Pt will improve B hip and knee strength globally to 4+/5 MMT in order to demonstrate improved stability for squats, tennis, and stairs 07/25/24: 4+/5 for all hip except R abd and ext 4/5, 4+/5 for knee flex/ext LTG Duration 12 weeks PARTIALLY MET One Impairment R knee ROM limited Short Term Goal (STG) Pt will improve R knee extension AROM to lacking 3 deg or less to improve TKE for more efficient quad activation during stairs 06/27/24: R knee ext 3 deg ( improve from lacking 7 deg ext ) STG Duration 8 weeks PROGRESSING 06/27 Fpc Goal (LTG) Pt will improve B knee extension AROM to at least 1 deg or better in order to improve TKE for more efficient quad activation during stairs 07/21/24: lacking 1 deg ext posturally, 0 deg ext with AROM LTG Duration 12 weeks MET 07/21 Assessment Summary Assessment Pt responded well to manual, there ex today with occ cues for knee alignment. Progressed Sl sliders AROM then step downs with no pain, just little weakness in quad and hip abd, good self corrections . Physical Therapy Plan Frequency and Duration Frequency of Treatment 2x/Week Duration of treatment (weeks) 12 Plan of Care Start Date 05/23/24 Plan of Care End Date 08/19/24 Therapeutic Interventions Therapeutic Interventions Balance Training,Gait Training ,Home Exercise Program,Joint Mobilizations,Manual Therapy, Neuromuscular Re-education, Orthotic/Prosthetic Management ,Patient/Caregiver Education, Self-Care/Home Management, Sensory Integration,Soft Tissue Mobilization,Taping, Therapeutic Activities, Therapeutic Exercises Modalities Cold Pack/Ice Massage,Electric Stimulation,Hot Packs, Ultrasound Other Therapeutic Interventions pelvic realignment, MET Other Referrals/Consults Referrals/Consults Recommended Recommend referral to rheumatology for symptom management as well Next Visit Focus/Plan Next Note Type Treatment Note Next Visit Plan [facility] for finalize pre DC, some duplicates. single leg proprio: stable and unstable, can trial bosu squat. Retrial and add triple ext, august c/ . BOSU step up/lat lunge, quad hops, dynamic plyometrics. POC: Glute/quad strength: uni squat on press, ecc squats, jump squats, proprioception training, single leg training PT POC: Treat both knees for quad and glute strength manual treatment: STM, joint mobilizations betito to restore ext
--- NOTE | 2024-08-08 08:34 | PT.OTN ---
Current Diagnoses Chronic gout, unspecified, with tophus (tophi) (08/08/24) Pain in unspecified joint (08/08/24) Pain in right knee (08/08/24) Pain in left knee (08/08/24) Stiffness of right knee, not elsewhere classified (08/08/24) Stiffness of left knee, not elsewhere classified (08/08/24) Stiffness of unspecified ankle, not elsewhere classified (08/08/24) Other lack of coordination (08/08/24) Weakness (08/08/24) Physical Therapy Treatment Note PT-OP-A Visit Information Start: 05/23/24 07:28 Freq: Status: Active Protocol: Document 08/08/24 07:29 NM (Rec: 08/08/24 08:34 NM [id number]) Out-Patient Physical Therapy Visit Information Visit Information Visit Type Discharge Summary Visit Start Time 07:32 Visit Stop Time 08:20 Visit Number 14 (02/05 for 2024) Evaluation Information Evaluation Date 05/23/24 Precautions Precautions Hx gout, fall risk PT-OP-B Current Condition Start: 05/23/24 07:28 Freq: Status: Active Protocol: Document 05/23/24 07:28 NM (Rec: 05/23/24 08:16 NM [id number]) Current Condition History of Current Condition Onset Date early 2023 History of Current Condition Pt presents with B knee pain, usually with activity. Worse with downhill walking, down stairs, skiing, lunges. He reports that he has had to modify playing tennis, has difficulty with stopping quickly and changing direction , in addition to serving. He reports pain began in early 2023. He had a big gout flare up at same time. Had imaging, reflects more OA. Left knee usually bothers him more than the R knee but varies day by day. Has not been referred to drug safety specialist for knees but only for gout in February. Has had gout for a few years, has flare ups every 3 months; unsure of cause of flare ups. When he has flare ups, usually at ankles, 2nd toes. He is on medication to manage but is prn, usually on ibuprofen and tylenol. He has not seen rheumatology. No falls, fear of falls especially with going down stairs- feels unstable due to pain. 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 States that he was worked pretty hard last session, states did have a little knee pain. Pt reports ready to discharge today, has been compliant with HEP. PT-OP-D Balance Start: 05/23/24 16:29 Freq: Status: Active Protocol: Document 05/23/24 07:28 NM (Rec: 05/23/24 16:31 NM [id number]) Balance Tests Single Limb Standing Single Limb- Right 15 sec- inc unsteadiness Single Limb- Left 10 sec - inc unsteadiness PT-OP-E Functional Tests Start: 05/23/24 07:28 Freq: Status: Active Protocol: Document 05/23/24 07:28 NM (Rec: 05/23/24 15:45 NM [id number]) Functional Tests Squat Test Score 5 Comments no pain; feels behind patella, dec ankle/hip mob PT-OP-F Manual Assessment Start: 05/23/24 07:28 Freq: Status: Active Protocol: Document 05/23/24 07:28 NM (Rec: 05/23/24 08:16 NM [id number]) Manual Assessments Soft Tissue Assessment Soft Tissue Mobility Assessment R knee possible johnson cyst - palpable bulge Joint Mobility Assessment Joint Mobility Assessment Increased lateral tracking R knee, decreased R knee ext ROM , limited joint play; no pain L knee has increased passive extension and flexion compared to RLE; limited patellar mobility PT-OP-G Mobility & Gait Start: 05/23/24 07:28 Freq: Status: Active Protocol: Document 05/23/24 07:28 NM (Rec: 05/23/24 08:16 NM [id number]) OP Gait Assessment Comments Gait Comments L supination Stair Climbing Evaluation Devices Stair Climbing Assistive Devices Right Railing Technique/Endurance Stair Climbing Direction Ascend and Descend Stair Climbing Technique Step Over Step Number of Steps Climbed 4 Stair Climbing Set # Repetitions (reps) 1 Comments Stair Climbing Comments Pain with descent, demos unsteadiness and knee valgus with descent especially with single leg stability B 4 step down: still demo unsteadiness, increased valgus , poor ankle dorsiflexion and stability on single leg PT-OP-J Posture/Palpation/Skin Start: 05/23/24 07:28 Freq: Status: Active Protocol: Document 05/23/24 07:28 NM (Rec: 05/23/24 15:45 NM [id number]) Posture Evaluation Position Standing Head/C-Spine Posture Forward Head Pelvis Posture Anteriorly Tilted Hip Posture (L) Externally Rotated,(R) Externally Rotated Knee Posture (L) Genu Valgus,(R) Genu Valgus Patellar Posture (L) Superior,(R) Superior,(R) Laterally Tilted Ankle/Foot Posture (L) Pronated,(R) Pronated Foot Arch (L) Low Arch,(R) Low Arch Palpation Assessment Location R knee Palpation Details Tenderness along medial knee No tenderness with patellar mobilizations Palpable bulge behind lateral knee, mild tenderness L knee Palpation Details Tenderness along fibular head to lateral joint line No tenderness along medial joint line or with patellar mobilizations PT-OP-K Range of Motion Start: 05/23/24 07:28 Freq: Status: Active Protocol: Document 08/08/24 07:29 NM (Rec: 08/08/24 08:34 NM [id number]) Knee Goniometric Range of Motion Knee Right Flexion Active (degrees) 135 Extension Active (degrees) 0 Comments minimal passive ext and flex; no pain with overpressure but stiff Left Flexion Active (degrees) 135 Hyper-Extension Active 2 Comments more passive ext and flex; no pain with overpressure PT-OP-L Special Tests Start: 05/23/24 07:28 Freq: Status: Active Protocol: Document 05/23/24 07:28 NM (Rec: 05/23/24 08:16 NM [id number]) Special Tests Knee Special Tests Patellar Grind Test Test Results - Hemant Test Test Results - Libby's Test Results - Varus Test Results - Valgus Test Results + Comments Mild increase in LLE compared to RLE with flexion PT-OP-M Strength Start: 05/23/24 07:28 Freq: Status: Active Protocol: Document 08/08/24 07:29 NM (Rec: 08/08/24 08:34 NM [id number]) Hip Strength Hip Manual Muscle Testing Right Flexion (L2) 4+ Good+ Extension (S1) 4 Good Abduction 4+ Good+ Adduction 4+ Good+ External Rotation 4+ Good+ Internal Rotation 4+ Good+ Left Flexion (L2) 4+ Good+ Extension (S1) 4+ Good+ Abduction 4+ Good+ Adduction 4+ Good+ External Rotation 4+ Good+ Internal Rotation 4+ Good+ Knee Strength Knee Manual Muscle Testing Right Flexion (S2) 4+ Good+ Extension (L3) 4+ Good+ Left Flexion (S2) 4+ Good+ Extension (L3) 4+ Good+ PT-OP-Q Treatments Start: 05/23/24 07:28 Freq: Status: Active Protocol: Document 08/08/24 07:29 NM (Rec: 08/08/24 08:34 NM [id number]) Therapeutic Exercises Standing Exercises step down Standing Exercise Name 1. fwd eccentric lowering, 2. lateral step down Side bilateral Equipment Used 6 step, 2 fingers balance Reps/Minutes 10 ea Comments cued levels hips and knee alignment; edu to do post ankle mob RDL Standing Exercise Name Single leg RDL w/o wall support Side bilateral Resistance 5# db Equipment Used to 8 box, db to mid buenrostro Reps/Minutes 15 ea Comments maintains neutral spine single leg squat Standing Exercise Name 1. kickstand split squat, 2. ( rear elevated) on 8 step Side bilateral Resistance 1 finger support Reps/Minutes 8 ea ankle dorsiflexion mobilization Standing Exercise Name c/ band Side bilateral Resistance level 5 band @ talocrural joint Equipment Used holding band c/ opp foot, c/ AP and inf glide Reps/Minutes 20 ea Comments edu to do prior to exercises needing knee over toe mobility Neuro Re-Education Treatment Balance Activities clock Details tap w/ slight squat using ea foot @ ea clock face Surface unstable Equipment foam pad, 2 finger support for balance Reps/Duration 5 sets ea Comments Improved stability today. provided progressions for HEP. Still challenging R>L Other Activities Hopping Comments 1. B hops on floor in place Cueing for form, landing, speed, weight shifting, posture. Demos tendency to maintain flexed postured even with hopping, needs cueing for elongation while hopping then landing back in controlled squat position. Cueing also needed for knee alignment behind toes and to maintain controlled landing with weight on midfoot vs rocking from toe > heel 2. B hops on shuttle recovery, 25# Improved squat form and elongation, minimal cues needed for softer landing. Retrialed hopping on floor following shuttle (see 1 above ) 3. B hops on floor fwd and bwd Cueing for maintenance of squat position and weight shifting, improved landing and speed with reps. Prn cues for controlled landing but no knee pain, cueing for alignment Self-Care/Home Management Treatment Education Patient Education Home Exercise Program Other Education Pt educated on form and provided with clear written instructions on previous handouts with progressions and when to progress. Recommended progression with increased reps/sets, then trial increased resistance before changing height or adapting exercise to less support PT-OP-T Assessment and Plan Start: 05/23/24 07:28 Freq: Status: Active Protocol: Document 08/08/24 07:29 NM (Rec: 08/08/24 08:34 NM [id number]) Physical Therapy Assessment Goals Four Impairment LEFS 64/80 Assisted Goal (LTG) Pt will improve LEFS >64/80 in order to demonstrate improvements in symptom management during ADLs, work, and recreational activities 06/27/24: 68/80 07/25/24: 71/80 LTG Duration 12 weeks MET Three Impairment unsteadiness w/ stairs, fear of falling Short Term Goal (STG) Pt will be able to perform at least 8 eccentric step downs without <5/10 knee pain in order to demonstrate improved control during stair management 06/27/24: pt reports 0/10 pain B knees, needs cueing for form d/t valgus and compensations 06/20/24: pain with descent on stairs, needs rail assist with descent 07/25/24: 8 eccentric step downs, 1/10 knee painmet 07/25 STG Duration 8 weeks PROGRESSING 06/27 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) Pt will be able to perform at least 12 stairs with <4/10 knee pain with 1 rail or less and no reports of instability during descent for work- related tasks 07/25/24: 12 stairs, no rail 1- 2 pain B knees LTG Duration 12 weeks MET Two Impairment B knee and hip strength limited Short Term Goal (STG) Pt will be IND with HEP at least 3x/wk in order to maximize progression with PT 06/27/24: performs HEP 1x/day STG Duration 4 weeks MET 06/27 Assisted Goal (LTG) Pt will improve B hip and knee strength globally to 4+/5 MMT in order to demonstrate improved stability for squats, tennis, and stairs 07/25/24: 4+/5 for all hip except R abd and ext 4/5, 4+/5 for knee flex/ext 08/08/24: 4/5 for R hip ext, 4+ /5 for all other MMT of B hip and knee LTG Duration 12 weeks PARTIALLY MET 08/08 One Impairment R knee ROM limited Short Term Goal (STG) Pt will improve R knee extension AROM to lacking 3 deg or less to improve TKE for more efficient quad activation during stairs 06/27/24: R knee ext 3 deg ( improve from lacking 7 deg ext ) STG Duration 8 weeks PROGRESSING 06/27 Assisted Goal (LTG) Pt will improve B knee extension AROM to at least 1 deg or better in order to improve TKE for more efficient quad activation during stairs 07/21/24: lacking 1 deg ext posturally, 0 deg ext with AROM 08/08/24: 0 deg ext LTG Duration 12 weeks MET 07/21 Progress Towards Goals Progress Towards Goals Progressing Toward Goals,Goals Met Assessment Summary Assessment Pt with improved knee/ankle mobility post talocrural mobilization; maintains better alignment during step down and activities involving knee over toe. cueing needed to maintain pelvic alignment to promote glute medius activation/control during step down. Pt and PT discussed discharge today as pt progressing toward goals, including pain management goals during stairs. PT provided pt with several progressions for all higher level exercises today with clear education on when to progress to next level of exercise. Pt demos improved single leg stability and control during RDLs and split squat progression; still more challenging on RLE. Introduced dynamic plyometric with emphasis on form; pt needs increased cueing for correct execution but does not have knee pain. Physical Therapy Plan Frequency and Duration Frequency of Treatment 2x/Week Duration of treatment (weeks) 12 Plan of Care Start Date 05/23/24 Plan of Care End Date 08/19/24 Therapeutic Interventions Therapeutic Interventions Balance Training,Gait Training ,Home Exercise Program,Joint Mobilizations,Manual Therapy, Neuromuscular Re-education, Orthotic/Prosthetic Management ,Patient/Caregiver Education, Self-Care/Home Management, Sensory Integration,Soft Tissue Mobilization,Taping, Therapeutic Activities, Therapeutic Exercises Modalities Cold Pack/Ice Massage,Electric Stimulation,Hot Packs, Ultrasound Other Therapeutic Interventions pelvic realignment, MET Other Referrals/Consults Referrals/Consults Recommended Recommend referral to rheumatology for symptom management as well Discharge Physical Therapy Discharge Reasons Goals Met Discharge Comments PT and pt discussed discharge to maintenance program in previous sessions due to limitations in insurance visits for 2024 and progression toward goals. Pt has met all PT goals or demonstrated progression toward goals, remaining goals can be improved upon with continued strengthening. Updated maintenance program and provided progressions for pt to continue to work toward. PT provided education on when to progress appopriately and also educated pt on returning to PCP or for further evaluation by drug safety specialist should knee pain change or worsen. Pt verbalizes understanding and will be discharged to maintenance program. Next Visit Focus/Plan Next Note Type Discharge Summary Next Visit Plan discharge from PT
== END 2024-08-08 09:48 | disposition home or self-care (01) ==
LOC: PHYS 07:30
PROVIDERS: Family Provider Internal Medicine; PCP Internal Medicine; Referring Provider Internal Medicine; Visit Provider Internal Medicine
DX: M25.561 Pain in right knee (principal); M25.562 Pain in left knee; M25.50 Pain in unspecified joint; M1A.9XX1 Chronic gout, unspecified, with tophus (tophi); M25.662 Stiffness of left knee, not elsewhere classified; M25.661 Stiffness of right knee, not elsewhere classified; M25.673 Stiffness of unspecified ankle, not elsewhere classified; R53.1 Weakness; R27.8 Other lack of coordination
CPT/HCPCS: 97110; 97112; 97140; 97161; 97535